=== PATIENT | female | born 1970 | race Caucasian/White ===

== ENCOUNTER → 2020-02-09 14:29 | Outpatient (BNVA) | payer OTHER, SELFPAY | PROVIDERS: PCP Physician Assistant; Visit Provider Internal Medicine | DX: F11.20 Opioid dependence, uncomplicated (principal) | CPT/HCPCS: 99212 ==

== ENCOUNTER → 2020-03-08 14:46 | Outpatient (BNVA) | payer OTHER, SELFPAY | PROVIDERS: Visit Provider Internal Medicine | DX: F11.99 Opioid use, unspecified with unspecified opioid-induced disorder (principal) | CPT/HCPCS: 80305; 99211 ==

== ENCOUNTER 2020-04-09 09:35 | Day surgery (SDC) | payer MEDICARE, MEDICAID, SELFPAY ==
--- NOTE | 2020-04-09 | FL_ITS ---
EXAMINATION: XR LUMBAR PUNCTURE CLINICAL INFORMATION: Peripheral neuropathy. COMPARISON: None TECHNIQUE: Following explaining fluoroscopy-guided lumbar puncture procedure, benefits and risk, a written consent was obtained. Patient was placed prone on fluoroscopy table and low back area was cleaned and draped in the usual sterile manner. 1% lidocaine was injected at puncture site. A 20-gauge 6-inch long needle was inserted from right paramidline location at L3-L4 disc level intrathecally. After observing fluid return, patient was quickly placed in left lateral decubitus view and opening CSF pressure was obtained. CSF was then collected in 4 test tubes. Stylet was reintroduced and needle withdrawn. Complete hemostasis achieved at puncture site. Patient tolerated procedure extremely well. Sterile band-aid applied post procedure at the puncture site. FINDINGS: On the single fluoroscopy image, there is needle positioned posteriorly at the L4-L5 disc level. The vertebral heights, alignment and disc heights are preserved. Opening CSF pressure measured 14 cm of water. Approximately 11 mL of clear CSF fluid collected in 4 test tubes. FLUOROSCOPY TIME: 0.7 minutes DOSE AREA PRODUCT: 13.605 uGy-m2 (microgray-meter squared) FL/FL guided lumbar puncture LP IMPRESSION: Successful ultrasound-guided lumbar puncture performed. Opening CSF pressure 14 cm of water. 11 mL of clear CSF fluid collected and sent to lab.
[2020-04-09 10:01] VITALS: BMI 31.9
[2020-04-09 10:14] LABS: MANUAL DIFF FLAG NO
[2020-04-09 10:16] LABS: Basophils Absolute Auto 0.1 X10*3/uL (0.0-0.2); Basophils Percent Auto 0.5 % (0-2); Eosinophils Absolute Auto 0.4 X10*3/uL (0.0-0.4); Eosinophils Percent Auto 3.8 % (0-4); Hemoglobin 9.9 g/dl (12.0-16.0); Imm Gran Abs Auto 0.15 X10*3/uL (0.00-0.03); Imm Gran Pct Auto 1.4 % (0.0-0.4); Lymphocytes Absolute Auto 3.1 X10*3/uL (1.2-4.9); Lymphocytes Percent Auto 28.8 % (20-40); Mean Corpuscular HGB Conc 29.1 g/dl (31.0-35.0); Mean Corpuscular Hemoglobin 21.5 pg (27.0-33.0); Mean Corpuscular Volume 73.9 fL (80-98); Mean Platelet Volume 8.8 fL (9.4-12.3); Monocytes Percent Auto 9.6 % (2-11); Neutrophils Percent Auto 55.9 % (45-73); Platelet Count 303 X10*3/uL (160-400); Red Cell Distribution Width 18.3 % (11.0-16.0); White Blood Count 10.8 X10*3/uL (4.8-10.8)
[2020-04-09 10:22] LABS: INTERNATIONAL NORM RATIO 1.1 (0.9-1.1); Prothrombin Time 12.9 SEC (10.8-13.0)
[2020-04-09 10:25] LABS: Partial Thromboplastin Time 31.8 SEC (24.1-38.0)
[2020-04-09 12:05] VITALS: BP 154/67; PULSE 65; RESP 20; TEMP 36.3; O2SAT 96
[2020-04-09 12:20] VITALS: BP 142/73; PULSE 64; RESP 20; O2SAT 95
[2020-04-09] MEDS: Acetaminophen 325 MG TABLET 650 MG PO (12:30)
[2020-04-09] MEDS: oxyCODONE HCl Immed Release 5 MG TABLET PO (12:30)
[2020-04-09 12:35] VITALS: BP 145/76; PULSE 62; RESP 18; O2SAT 96
[2020-04-09 12:50] LABS: CSF Appearance Clear, Colorless; CSF Tube # 1; Oligoclonal Serum Yes
[2020-04-09 13:09] LABS: Appearance CSF CLEAR; CSF Monos 0 %; CSF Other Cells % 0 %; CSF Tube # 4; Color CSF COLORLESS; Lymphocytes CSF 100 %; Neutrophils CSF 0 %; Red Blood Cell CSF 2 MM*3; White Blood Cell CSF 2 MM*3
[2020-04-09 13:10] VITALS: BP 108/56; PULSE 65; RESP 18; O2SAT 95
[2020-04-09 13:11] LABS: Glucose CSF 119 mg/dL; Total Protein CSF 33.7 mg/dL (15-45)
[2020-04-09 13:40] VITALS: BP 114/60; PULSE 91; RESP 18; O2SAT 96
[2020-04-14 15:31] LABS: Albumin 3.4 g/dL (3.5-5.2); Albumin, CSF 16.5 mg/dL (8.0-42.0); IgG 1910 mg/dL (600-1640); IgG, CSF 3.6 mg/dL (0.8-7.7)
== END 2020-04-09 23:59 | disposition home or self-care (01) ==
PROVIDERS: Radiology Diagnostic Radiology; PCP Physician Assistant; Visit Provider Psychiatry & Neurology Neurology
PROC: 009U3ZZ Drainage of Spinal Canal, Percutaneous Approach (ICD-10-PCS; CPT 62270; principal; 2020-04-09 11:00)
DX: G62.9 Polyneuropathy, unspecified (principal); I10 Essential (primary) hypertension; E11.40 Type 2 diabetes mellitus with diabetic neuropathy, unspecified; Z79.4 Long term (current) use of insulin; F41.8 Other specified anxiety disorders; F11.20 Opioid dependence, uncomplicated; Z79.899 Other long term (current) drug therapy; Z88.0 Allergy status to penicillin; Z88.2 Allergy status to sulfonamides
CPT/HCPCS: 36415; 62328; 82042; 82945; 83916; 84157; 85025; 85610; 85730; 87015; 87070; 87205; 89051

== ENCOUNTER → 2020-04-12 15:53 | Outpatient (BNVA) | payer OTHER, SELFPAY | PROVIDERS: Visit Provider Internal Medicine | DX: Z13.89 Encounter for screening for other disorder (principal) | CPT/HCPCS: 99211 ==

== ENCOUNTER → 2020-05-13 14:45 | Outpatient (BNVA) | payer OTHER, SELFPAY | PROVIDERS: PCP Family Medicine; Visit Provider Internal Medicine | DX: Z76.89 Persons encountering health services in other specified circumstances (principal) ==

== ENCOUNTER → 2020-06-12 13:30 | Outpatient (BNVA) | payer MEDICARE, MEDICAID, SELFPAY | PROVIDERS: Visit Provider Internal Medicine | DX: F11.20 Opioid dependence, uncomplicated (principal) | CPT/HCPCS: 80305; 99212 ==

== ENCOUNTER → 2020-07-05 14:29 | Outpatient (BNVA) | payer MEDICARE, MEDICAID, SELFPAY | PROVIDERS: Visit Provider Internal Medicine | DX: F11.20 Opioid dependence, uncomplicated (principal) | CPT/HCPCS: 80305; 99212 ==

== ENCOUNTER → 2020-07-17 13:59 | Outpatient (BNVA) | payer MEDICARE, MEDICAID, SELFPAY | PROVIDERS: Visit Provider Internal Medicine | DX: F11.99 Opioid use, unspecified with unspecified opioid-induced disorder (principal); Z79.899 Other long term (current) drug therapy | CPT/HCPCS: 80305; 99211 ==

== ENCOUNTER → 2020-07-24 13:29 | Outpatient (BNVA) | payer MEDICARE, MEDICAID, SELFPAY | PROVIDERS: Visit Provider Internal Medicine | DX: F11.99 Opioid use, unspecified with unspecified opioid-induced disorder (principal); Z79.899 Other long term (current) drug therapy | CPT/HCPCS: 80305; 99212 ==

== ENCOUNTER 2020-08-13 13:36 | Outpatient (REF) | payer MEDICARE, MEDICAID, SELFPAY ==
[2020-08-13 15:16] LABS: Hemoglobin 11.1 g/dl (12.0-16.0); Mean Corpuscular HGB Conc 29.2 g/dl (31.0-35.0); Mean Corpuscular Hemoglobin 21.3 pg (27.0-33.0); Mean Corpuscular Volume 72.8 fL (80-98); Mean Platelet Volume 9.6 fL (9.4-12.3); Platelet Count 363 X10*3/uL (160-400); Red Blood Count 5.22 X10*6/uL (4.20-5.50); Red Cell Distribution Width 17.5 % (11.0-16.0); White Blood Count 9.8 X10*3/uL (4.8-10.8)
[2020-08-13 15:59] LABS: TSH reflex Free T4 0.94 uIU/mL (0.32-4.0)
[2020-08-13 16:03] LABS: Alanine Aminotransferase 25 U/L (0-31); Albumin Level 4.1 g/dL (3.5-5.0); Alkaline Phosphatase 139 U/L (39-117); Anion Gap 13 (12-20); Aspartate Amino Transferase 26 U/L (5-31); Bilirubin Total 0.4 mg/dL (0.0-1.0); Blood Urea Nitrogen 13 mg/dL (9-16); Calcium 9.3 mg/dL (8.4-10.2); Carbon Dioxide 25 mmol/L (22-29); Chloride 107 mmol/L (96-108); Cholesterol 243 mg/dL; Estimated Glomerular Filt Rate > 60; Glucose Fasting 103 mg/dL (60-99); HDL Cholesterol 31 mg/dL; LDL Cholesterol Calculated 167 mg/dl; Potassium 4.1 mmol/L (3.3-5.1); Sodium 141 mmol/L (135-145); Total Protein 8.7 g/dL (6.5-8.0); Triglycerides 229 mg/dL
[2020-08-13 16:52] LABS: Creatinine Urine 49.66 mg/dL; Microalbumin Urine < 5.0 mg/L
== END 2020-08-13 13:37 | disposition home or self-care (01) ==
LOC: HO.LAB 13:36
PROVIDERS: PCP Physician Assistant; Visit Provider Nurse Practitioner Family
DX: E11.65 Type 2 diabetes mellitus with hyperglycemia (principal); I10 Essential (primary) hypertension; K59.04 Chronic idiopathic constipation; K64.9 Unspecified hemorrhoids; Z79.4 Long term (current) use of insulin
CPT/HCPCS: 36415; 80053; 80061; 82043; 84443; 85027; Q3014

== ENCOUNTER → 2020-08-14 13:56 | Outpatient (BNVA) | payer MEDICARE, MEDICAID, SELFPAY | PROVIDERS: Visit Provider Internal Medicine | DX: F11.99 Opioid use, unspecified with unspecified opioid-induced disorder (principal); Z51.81 Encounter for therapeutic drug level monitoring; Z79.899 Other long term (current) drug therapy | CPT/HCPCS: 80305; 99212 ==

== ENCOUNTER → 2020-08-27 13:33 | Outpatient (BNVA) | payer MEDICARE, MEDICAID, SELFPAY | PROVIDERS: Visit Provider Nurse Practitioner Family | DX: Z12.11 Encounter for screening for malignant neoplasm of colon (principal); K59.09 Other constipation | CPT/HCPCS: Q3014 ==

== ENCOUNTER 2020-09-02 09:19 | Day surgery (SDC) | payer MEDICARE, MEDICAID, SELFPAY ==
[2020-09-02 09:33] VITALS: BMI 30.5
--- NOTE | 2020-09-02 09:33 | P.CONAN_ITS ---
[facility] Active Problems Active Problems: All Active Problems (Updated 08/27/20 @ 16:51 by Radha santamaria) DMII (diabetes mellitus, type 2) (Acute) Constipation (Acute) Bright red blood per rectum (Acute) MDD (major depressive disorder) (Acute) RLS (restless legs syndrome) (Acute) Migraines (Acute) Central sleep apnea (Acute) Cellulitis (Acute) Diabetic neuropathy (Acute) Spinal stenosis of lumbar region with radiculopathy (Acute) Opioid use disorder (Acute) Past Medical History Medical History Anxiety and depression Central sleep apnea Diabetic neuropathy Elevated cholesterol GERD (gastroesophageal reflux disease) HTN (hypertension) IDDM (insulin dependent diabetes mellitus) Major depression Migraine Opioid use disorder PTSD (post-traumatic stress disorder) Spinal stenosis Family History Family History Father Diabetes Mother CVD (cardiovascular disease) Maternal Grandmother Medical history unknown Maternal Grandfather Medical history unknown Brother Diabetes Brother CAD (coronary artery disease) Brother Acute CVA (cerebrovascular accident) Sister Acute CVA (cerebrovascular accident) Myocardial infarction Surgical History Surgical History H/O prior ablation treatment H/O tubal ligation History of ear surgery S/P JOANNE-BSO Social History Social History Alcohol intake: former Smoking Status: Never smoker Use of substances other than those prescribed or required for medical reasons: Yes Substance Use Type: Heroin and Opiates Substance Use Type Other:: medical marijuana Advance Directives: No Advance Directives Information Provided: Yes Recently lost weight without trying: No Meds Allergies Allergy/AdvReac Type Severity Reaction Status Date / Time naloxone Allergy Severe migraines Verified 08/27/20 16:43 NSAIDS (Non-Steroidal Allergy Mild ANGIOEDEMA Verified 08/27/20 16:43 Anti-Inflamma [NSAIDS (NON-STEROIDAL ANTI-INFLAMMA] acetaminophen [Vicodin] Allergy Unknown Unknown Verified 08/27/20 16:43 blue cheese Allergy Unknown Unknown Verified 08/27/20 16:43 hydrocodone [Vicodin] Allergy Unknown Unknown Verified 08/27/20 16:43 Penicillins [PCN] Allergy Unknown UNKNOWN Verified 08/27/20 16:43 propoxyphene Allergy Unknown Unknown Verified 08/27/20 16:43 [From Darvocet-N] Sulfa (Sulfonamide Allergy Unknown Unknown Verified 08/27/20 16:43 Antibiotics) sulfamethoxazole Allergy Unknown UNKNOWN Verified 08/27/20 16:43 [From BACTRIM] sumatriptan [From IMITREX] Allergy Unknown UNKNOWN Verified 08/27/20 16:43 tetracycline Allergy Unknown Unknown Verified 08/27/20 16:43 trimethoprim [From BACTRIM] Allergy Unknown UNKNOWN Verified 08/27/20 16:43 COCONUT Allergy Unknown Unknown Uncoded 08/27/20 16:43 Home Medications Medication Instructions Recorded Confirmed Last Taken Type linaclotide 290 mcg capsule 290 mcg PO QAM 02/05/20 08/27/20 Unknown History lisinopril 10 mg tablet 10 mg PO DAILY 02/05/20 08/27/20 Unknown History pseudoephedrine HCl 30 mg capsule 30 mg PO Q4-6H PRN 02/05/20 08/27/20 Unknown History clonazepam 0.5 mg tablet 0.5 mg PO BID 07/11/20 08/27/20 09/02/20 08:00 History simvastatin 40 mg tablet 40 mg PO DAILY 07/11/20 08/27/20 Unknown History Exam Exam Date and Time: September 02, 2020 0933 Airway Mallampati Class: II TM Dist: >3cm Neck ROM: Full Denture: Upper and Lower Loose/Missing/Broken Teeth: Yes (Edentulous) Heart: RRR Lungs: CTA
[2020-09-02 09:49] VITALS: BP 155/75; PULSE 61; RESP 16; TEMP 36.2; O2SAT 97
--- NOTE | 2020-09-02 09:54 | P.OP_ITS ---
Operative Note Operative Note Date of Service: 09/02/20 Narrative: Pre-op diagnosis: Colon cancer screening Post-op diagnosis: other (Procedure aborted due to poor prep.) Procedure: FLEXIBLE SIGMOIDOSCOPY PROCEDURE NOTE Consent: Indications for the procedure and potential complications of bleeding, perforation, reaction to medications and missed diagnosis were discussed with the patient and informed consent was obtained. Instrument: Olympus PCF H 190 L variable stiffness pediatric colonoscope Monitoring: Vital signs and clinical assessment, intermittent blood pressure monitoring, continuous EKG monitoring, Pulse oximetry and Carbon Dioxide monitoring were done throughout the procedure. Procedure: The patient was placed in the left lateral decubitis position and pre-procedure medications were administered. After a digital rectal examination of the ano-rectum, the video colonoscope was inserted into the rectum and advanced to 20 cms to the distal sigmoid colon. It was not possible to advanced further due to poor prep with solid stool blocking the lumen. The colonoscope was removed and procedure was aborted. Findings: Descending Colon: Not evaluated due to poor prep Sigmoid Colon: Not evaluated due to poor prep Rectum: Not evaluated due to poor prep Ano-rectum: Normal digital rectal exam Colon preparation: poor - procedure was aborted Impression and Post Procedure Diagnosis: Flexible sigmoidoscopy Findings: Procedure aborted due to poor prep. Plan: Patient was advised to continue clear liquid diet today and take 2 tablets of Dulcolax and Miralax Prep today. Colonoscopy rescheduled for 09/03/20 at 2 pm. Above findings were reviewed with the patient. Surgeon: Gelacio Whittaker MD Anesthesia: MAC (Dr Jimenez) [employer] P[employer] Machine Operator: Jennifer Payton Estimated blood loss (mL): 0 Pathology: none sent Condition: stable Disposition: PACU
--- NOTE | 2020-09-02 09:54 | MHC.SHP ---
Pre-Procedural Eval Section A The patient is an INPATIENT: No The History & Physical has been completed within 30 days and I have reviewed it.: Yes Section B Chief Complaint: Chronic Idiopathic Constipation Allergies: Allergies Allergy/AdvReac Type Severity Reaction Status Date / Time naloxone Allergy Severe migraines Verified 08/27/20 16:43 NSAIDS (Non-Steroidal Allergy Mild ANGIOEDEMA Verified 08/27/20 16:43 Anti-Inflamma [NSAIDS (NON-STEROIDAL ANTI-INFLAMMA] acetaminophen [Vicodin] Allergy Unknown Unknown Verified 08/27/20 16:43 blue cheese Allergy Unknown Unknown Verified 08/27/20 16:43 hydrocodone [Vicodin] Allergy Unknown Unknown Verified 08/27/20 16:43 Penicillins [PCN] Allergy Unknown UNKNOWN Verified 08/27/20 16:43 propoxyphene Allergy Unknown Unknown Verified 08/27/20 16:43 [From Darvocet-N] Sulfa (Sulfonamide Allergy Unknown Unknown Verified 08/27/20 16:43 Antibiotics) sulfamethoxazole Allergy Unknown UNKNOWN Verified 08/27/20 16:43 [From BACTRIM] sumatriptan [From IMITREX] Allergy Unknown UNKNOWN Verified 08/27/20 16:43 tetracycline Allergy Unknown Unknown Verified 08/27/20 16:43 trimethoprim [From BACTRIM] Allergy Unknown UNKNOWN Verified 08/27/20 16:43 COCONUT Allergy Unknown Unknown Uncoded 08/27/20 16:43 Review of Systems Sugical H&P ROS: Negative: Constitution, Cardiovascular and Respiratory and Yes, Specify: Gastrointestinal (constipation and hematochezia) Exam Surgical H&P Exam: Normal: Heart, Normal: Lungs, Normal: Extremities and Normal: Abdomen Plan Diagnosis/Plan: Unchanged I have reviewed the history and physical and performed a pertinent physical examination on my patient. No changes have occurred unless specified.
--- NOTE | 2020-09-02 10:05 | HO.ANESPROP2 ---
[facility] Active Problems Active Problems: All Active Problems (Updated 08/27/20 @ 16:51 by Radha Gonzales) DMII (diabetes mellitus, type 2) (Acute) Constipation (Acute) Bright red blood per rectum (Acute) MDD (major depressive disorder) (Acute) RLS (restless legs syndrome) (Acute) Migraines (Acute) Central sleep apnea (Acute) Cellulitis (Acute) Diabetic neuropathy (Acute) Spinal stenosis of lumbar region with radiculopathy (Acute) Opioid use disorder (Acute) Past Medical History Medical History Anxiety and depression Central sleep apnea Diabetic neuropathy Elevated cholesterol GERD (gastroesophageal reflux disease) HTN (hypertension) IDDM (insulin dependent diabetes mellitus) Major depression Migraine Opioid use disorder PTSD (post-traumatic stress disorder) Spinal stenosis Family History Family History Father Diabetes Mother CVD (cardiovascular disease) Maternal Grandmother Medical history unknown Maternal Grandfather Medical history unknown Brother Diabetes Brother CAD (coronary artery disease) Brother Acute CVA (cerebrovascular accident) Sister Acute CVA (cerebrovascular accident) Myocardial infarction Surgical History Surgical History H/O prior ablation treatment H/O tubal ligation History of ear surgery S/P JOANNE-BSO Social History Social History Alcohol intake: former Smoking Status: Never smoker Use of substances other than those prescribed or required for medical reasons: Yes Substance Use Type: Heroin and Opiates Substance Use Type Other:: medical marijuana Advance Directives: No Advance Directives Information Provided: Yes Recently lost weight without trying: No Meds Allergies Allergy/AdvReac Type Severity Reaction Status Date / Time naloxone Allergy Severe migraines Verified 08/27/20 16:43 NSAIDS (Non-Steroidal Allergy Mild ANGIOEDEMA Verified 08/27/20 16:43 Anti-Inflamma [NSAIDS (NON-STEROIDAL ANTI-INFLAMMA] acetaminophen [Vicodin] Allergy Unknown Unknown Verified 08/27/20 16:43 blue cheese Allergy Unknown Unknown Verified 08/27/20 16:43 hydrocodone [Vicodin] Allergy Unknown Unknown Verified 08/27/20 16:43 Penicillins [PCN] Allergy Unknown UNKNOWN Verified 08/27/20 16:43 propoxyphene Allergy Unknown Unknown Verified 08/27/20 16:43 [From Darvocet-N] Sulfa (Sulfonamide Allergy Unknown Unknown Verified 08/27/20 16:43 Antibiotics) sulfamethoxazole Allergy Unknown UNKNOWN Verified 08/27/20 16:43 [From BACTRIM] sumatriptan [From IMITREX] Allergy Unknown UNKNOWN Verified 08/27/20 16:43 tetracycline Allergy Unknown Unknown Verified 08/27/20 16:43 trimethoprim [From BACTRIM] Allergy Unknown UNKNOWN Verified 08/27/20 16:43 COCONUT Allergy Unknown Unknown Uncoded 08/27/20 16:43 Active Medications: Current Medications Generic Name Dose Route Start Last Admin Trade Name Freq PRN Reason Stop Dose Admin Lactated Ringer's 1,000 mls @ 50 mls/hr 09/02/20 10:00 Lr IV .Q20H [facility] Home Medications Medication Instructions Recorded Confirmed Last Taken Type linaclotide 290 mcg capsule 290 mcg PO QAM 02/05/20 08/27/20 Unknown History lisinopril 10 mg tablet 10 mg PO DAILY 02/05/20 08/27/20 Unknown History pseudoephedrine HCl 30 mg capsule 30 mg PO Q4-6H PRN 02/05/20 08/27/20 Unknown History clonazepam 0.5 mg tablet 0.5 mg PO BID 07/11/20 08/27/20 09/02/20 08:00 History simvastatin 40 mg tablet 40 mg PO DAILY 07/11/20 08/27/20 Unknown History Exam Exam Date and Time: September 02, 2020 1005 Height,Weight and Vital Signs: Height 5 ft 11 in Weight 99.337 kg Last Vital Signs Temp 97.1 F 09/02/20 09:49 Pulse 61 09/02/20 09:49 Resp 16 09/02/20 09:49 BP 155/75 H 09/02/20 09:49 Pulse Ox 97 09/02/20 09:49 Airway Mallampati Class: II TM Dist: >3cm Denture: Upper and Lower Loose/Missing/Broken Teeth: Yes (Edentulous) Heart: RRR Lungs: CTA Assessment and Plan Assessment Anesthesia Assessment: Anesthesia Plan Discussed and Chart Reviewed Final Anesthetic Review NPO: Yes ASA Class: III Final Preanesthetic Review: Meds/Allgs Chart Reviewed, Consent Obtained/Reviewed and Anes Risks/Benef Reviewed Patient Risk: Intermediate Anesthetic Plan Anesthetic Plan: MAC: Disposition: Standard PACU
[2020-09-02] MEDS: Lactated Ringers 1,000 ML 50 ML IV (10:10)
[2020-09-02 10:14] LABS: Glucose, Whole Blood 243 mg/dL (60-115)
[2020-09-02 10:30] VITALS: BP 116/67; PULSE 67; RESP 18; TEMP 36.2; O2SAT 99
[2020-09-02 10:45] VITALS: BP 122/63; PULSE 65; RESP 18; O2SAT 98
[2020-09-02 11:00] VITALS: BP 123/84; PULSE 78; RESP 18; TEMP 36.4; O2SAT 98
== END 2020-09-02 12:11 | disposition home or self-care (01) ==
PROVIDERS: PCP Physician Assistant; Visit Provider Internal Medicine Gastroenterology
PROC: 0DJD8ZZ Inspection of Lower Intestinal Tract, Via Natural or Artificial Opening Endoscopic (ICD-10-PCS; CPT 45378; principal; 2020-09-02 10:50)
DX: K59.04 Chronic idiopathic constipation (principal); K21.9 Gastro-esophageal reflux disease without esophagitis; I10 Essential (primary) hypertension; E11.40 Type 2 diabetes mellitus with diabetic neuropathy, unspecified; F11.90 Opioid use, unspecified, uncomplicated; F32.9 Major depressive disorder, single episode, unspecified; F43.10 Post-traumatic stress disorder, unspecified; Z79.4 Long term (current) use of insulin; Z79.899 Other long term (current) drug therapy
CPT/HCPCS: 45330; 82947

== ENCOUNTER 2020-09-03 12:53 | Day surgery (SDC) | payer MEDICARE, MEDICAID, SELFPAY ==
[2020-09-03 11:55] VITALS: BMI 30.5
[2020-09-03 13:10] VITALS: BP 165/83; PULSE 63; RESP 18; TEMP 36.2; O2SAT 95
--- NOTE | 2020-09-03 13:27 | P.CONAN_ITS ---
[facility] Active Problems Active Problems: All Active Problems (Updated 08/27/20 @ 16:51 by Radha santamaria) DMII (diabetes mellitus, type 2) (Acute) Constipation (Acute) Bright red blood per rectum (Acute) MDD (major depressive disorder) (Acute) RLS (restless legs syndrome) (Acute) Migraines (Acute) Central sleep apnea (Acute) Cellulitis (Acute) Diabetic neuropathy (Acute) Spinal stenosis of lumbar region with radiculopathy (Acute) Opioid use disorder (Acute) Past Medical History Medical History Anxiety and depression Central sleep apnea Diabetic neuropathy Elevated cholesterol GERD (gastroesophageal reflux disease) HTN (hypertension) IDDM (insulin dependent diabetes mellitus) Major depression Migraine Opioid use disorder PTSD (post-traumatic stress disorder) Spinal stenosis Family History Family History Father Diabetes Mother CVD (cardiovascular disease) Maternal Grandmother Medical history unknown Maternal Grandfather Medical history unknown Brother Diabetes Brother CAD (coronary artery disease) Brother Acute CVA (cerebrovascular accident) Sister Acute CVA (cerebrovascular accident) Myocardial infarction Surgical History Surgical History H/O prior ablation treatment H/O tubal ligation History of ear surgery S/P JOANNE-BSO Social History Social History Alcohol intake: former Smoking Status: Never smoker Use of substances other than those prescribed or required for medical reasons: Yes Substance Use Type: Heroin and Opiates Have you been hit, kicked, punched, or otherwise hurt by someone within the past year? If so, by whom?: No Advance Directives: No Advance Directives Information Provided: No Advance Directives on File: No Meds Allergies Allergy/AdvReac Type Severity Reaction Status Date / Time naloxone Allergy Severe migraines Verified 08/27/20 16:43 NSAIDS (Non-Steroidal Allergy Mild ANGIOEDEMA Verified 08/27/20 16:43 Anti-Inflamma [NSAIDS (NON-STEROIDAL ANTI-INFLAMMA] acetaminophen [Vicodin] Allergy Unknown Unknown Verified 08/27/20 16:43 blue cheese Allergy Unknown Unknown Verified 08/27/20 16:43 hydrocodone [Vicodin] Allergy Unknown Unknown Verified 08/27/20 16:43 Penicillins [PCN] Allergy Unknown UNKNOWN Verified 08/27/20 16:43 propoxyphene Allergy Unknown Unknown Verified 08/27/20 16:43 [From Darvocet-N] Sulfa (Sulfonamide Allergy Unknown Unknown Verified 08/27/20 16:43 Antibiotics) sulfamethoxazole Allergy Unknown UNKNOWN Verified 08/27/20 16:43 [From BACTRIM] sumatriptan [From IMITREX] Allergy Unknown UNKNOWN Verified 08/27/20 16:43 tetracycline Allergy Unknown Unknown Verified 08/27/20 16:43 trimethoprim [From BACTRIM] Allergy Unknown UNKNOWN Verified 08/27/20 16:43 COCONUT Allergy Unknown Unknown Uncoded 08/27/20 16:43 Home Medications Medication Instructions Recorded Confirmed Last Taken Type linaclotide 290 mcg capsule 290 mcg PO QAM 02/05/20 08/27/20 Unknown History lisinopril 10 mg tablet 10 mg PO DAILY 02/05/20 08/27/20 Unknown History pseudoephedrine HCl 30 mg capsule 30 mg PO Q4-6H PRN 02/05/20 08/27/20 Unknown H istory clonazepam 0.5 mg tablet 0.5 mg PO BID 07/11/20 08/27/20 09/02/20 08:00 History simvastatin 40 mg tablet 40 mg PO DAILY 07/11/20 08/27/20 Unknown History Exam Exam Date and Time: September 03, 2020 1327 Height,Weight and Vital Signs: Height 5 ft 11 in Weight 99.337 kg Last Vital Signs Temp 97.1 F 09/03/20 13:10 Pulse 63 09/03/20 13:10 Resp 18 09/03/20 13:10 BP 165/83 H 09/03/20 13:10 Pulse Ox 95 09/03/20 13:10 Airway Mallampati Class: II (Edentulous) TM Dist: >3cm Neck ROM: Full Loose/Missing/Broken Teeth: Yes, Upper and Lower Heart: RRR Lungs: CTA Assessment and Plan Assessment Anesthesia Assessment: Anesthesia Plan Discussed and Chart Reviewed Final Anesthetic Review NPO: Yes ASA Class: III Final Preanesthetic Review: Meds/Allgs Chart Reviewed, Consent Obtained/Reviewed and Anes Risks/Benef Reviewed Patient Risk: Intermediate Procedure Risk: Low Anesthetic Plan Anesthetic Plan: MAC: Disposition: Standard PACU
[2020-09-03 13:30] LABS: Glucose, Whole Blood 121 mg/dL (60-115)
[2020-09-03] MEDS: Lactated Ringers 1,000 ML 50 ML IV (13:45)
--- NOTE | 2020-09-03 13:53 | W.PM.OPN ---
Operative Note Operative Note Date of Service: 09/03/20 Narrative: Pre-op diagnosis: chronic constipation, rectal bleeding. Post-op diagnosis: other (Internal hemorrhoids, fair to poor prep) Procedure: COLONOSCOPY TILL CECUM Consent: Indications for the procedure and potential complications of bleeding, perforation, reaction to medications and missed diagnosis were discussed with the patient and informed consent was obtained. Instrument: Olympus PCF H 190 L variable stiffness pediatric colonoscope Monitoring: Vital signs and clinical assessment, intermittent blood pressure monitoring, continuous EKG monitoring, Pulse oximetry and Carbon Dioxide monitoring were done throughout the procedure. Colon withdrawl time was 40 minutes. Procedure: The patient was placed in the left lateral decubitis position and pre-procedure medications were administered. After a digital rectal examination of the ano-rectum, the video colonoscope was inserted into the rectum and advanced through the colon to the cecum. The colonoscope was slowly withdrawn in a retrograde panoramic fashion and the colon mucosa was carefully examined including a retroflexed view of the rectum. Findings and interventions are described below. Procedure Difficulty: Colon was long and tortuous and there was some loop formation. LLQ pressure was applied to intubate the ascending colon Findings: Terminal Ileum: Not evaluated Cecum: Partially evaluated due to fair to poor prep Ascending Colon: Partially evaluated due to fair to poor prep Transverse Colon: Partially evaluated due to fair to poor prep Descending Colon: Partially evaluated due to fair to poor prep Sigmoid Colon: Partially evaluated due to fair to poor prep Rectum: Partially evaluated due to fair to poor prep Ano-rectum: Moderate internal hemorrhoids Colon preparation: Fair and poor in some areas of the colon due to semi solid stool which could not be suctioned. 50% of the mucosa was visualized in will obstructing lesion was noted Impression and Post Procedure Diagnosis: Colonoscopy Findings: No polyps were detected. Colon prep was fair to poor despite copious irrigation due to semi solid stool which could not be suctioned. 50% - 60% of the mucosa was visualized and no obstructing lesions were seen. Moderate hemorrhoids on retroflexed exam. Plan: Patient has an appointment on 09/16/20 in the [facility] with Nathaly Pinto FNP-BC . Repeat Colonoscopy interval based on path results - in 6 months with 2 day prep. And a low fibre diet and Miralax two to three times daily the week before colonoscopy. Pt has microcytic anemia with elevated RDW, recommend checking iron studies and celiac serologies on follow up. If diagnosis of iron deficiency anemia if confirmed, she should have a same day upper Endoscopy when she returns for repeat colonoscopy. Pt reports she was taking Amitiza in the past for constipation and had good results. If she continues to have constipation despite Linzess, switching back to Amitiza can be considered. Above findings were reviewed with the patient a handout on hemorrhoids was given in the discharge area Surgeon: Gelacio Whittaker MD Anesthesia: MAC (Lisset Muniz, FUNDS DEVELOPMENT DIRECTOR) Director Translational: Juan Hampton Estimated blood loss (mL): 0 Pathology: none sent Condition: stable Disposition: PACU
--- NOTE | 2020-09-03 13:53 | MHC.SHP ---
Pre-Procedural Eval Section A The patient is an INPATIENT: No Changes since office visit: Yes Patient answered all questions; No Cold of Flu in the past 2 weeks, No New Medical Problems and No Changes in Medication The History & Physical has been completed within 30 days and I have reviewed it.: Yes Section B Chief Complaint: chronic constipation Allergies: Allergies Allergy/AdvReac Type Severity Reaction Status Date / Time naloxone Allergy Severe migraines Verified 08/27/20 16:43 NSAIDS (Non-Steroidal Allergy Mild ANGIOEDEMA Verified 08/27/20 16:43 Anti-Inflamma [NSAIDS (NON-STEROIDAL ANTI-INFLAMMA] acetaminophen [Vicodin] Allergy Unknown Unknown Verified 08/27/20 16:43 blue cheese Allergy Unknown Unknown Verified 08/27/20 16:43 hydrocodone [Vicodin] Allergy Unknown Unknown Verified 08/27/20 16:43 Penicillins [PCN] Allergy Unknown UNKNOWN Verified 08/27/20 16:43 propoxyphene Allergy Unknown Unknown Verified 08/27/20 16:43 [From Darvocet-N] Sulfa (Sulfonamide Allergy Unknown Unknown Verified 08/27/20 16:43 Antibiotics) sulfamethoxazole Allergy Unknown UNKNOWN Verified 08/27/20 16:43 [From BACTRIM] sumatriptan [From IMITREX] Allergy Unknown UNKNOWN Verified 08/27/20 16:43 tetracycline Allergy Unknown Unknown Verified 08/27/20 16:43 trimethoprim [From BACTRIM] Allergy Unknown UNKNOWN Verified 08/27/20 16:43 COCONUT Allergy Unknown Unknown Uncoded 08/27/20 16:43 Plan I have reviewed the history and physical and performed a pertinent physical examination on my patient. No changes have occurred unless specified.
[2020-09-03 15:07] VITALS: BP 141/82; PULSE 79; RESP 16; TEMP 36.1; O2SAT 99
[2020-09-03 15:22] VITALS: BP 176/91; PULSE 63; RESP 16; TEMP 36.1; O2SAT 98
== END 2020-09-03 15:59 | disposition home or self-care (01) ==
PROVIDERS: PCP Physician Assistant; Visit Provider Internal Medicine Gastroenterology
PROC: 0DJD8ZZ Inspection of Lower Intestinal Tract, Via Natural or Artificial Opening Endoscopic (ICD-10-PCS; CPT 45378; principal; 2020-09-03 14:00)
DX: K59.09 Other constipation (principal); K62.5 Hemorrhage of anus and rectum; K64.8 Other hemorrhoids; D50.9 Iron deficiency anemia, unspecified; E11.40 Type 2 diabetes mellitus with diabetic neuropathy, unspecified; Z79.4 Long term (current) use of insulin; F11.90 Opioid use, unspecified, uncomplicated; Z88.0 Allergy status to penicillin; Z88.2 Allergy status to sulfonamides; Z79.899 Other long term (current) drug therapy
CPT/HCPCS: 45378; 82947

== ENCOUNTER → 2020-09-06 14:00 | Outpatient (BNVA) | payer MEDICARE, MEDICAID, SELFPAY | PROVIDERS: Visit Provider Internal Medicine | DX: F11.20 Opioid dependence, uncomplicated (principal) | CPT/HCPCS: 80305; 99212 ==

== ENCOUNTER → 2020-09-16 13:59 | Outpatient (BNVA) | payer MEDICARE, MEDICAID, SELFPAY | PROVIDERS: PCP Physician Assistant; Visit Provider Nurse Practitioner Family | DX: Z13.89 Encounter for screening for other disorder (principal) | CPT/HCPCS: Q3014 ==

== ENCOUNTER 2020-09-18 12:44 | Outpatient (REF) | payer MEDICARE, MEDICAID, SELFPAY ==
--- NOTE | ~2020-09-18 | XR_ITS ---
EXAMINATION: XR FOOT, RIGHT CLINICAL INFORMATION: Diabetic ulcer COMPARISON: None TECHNIQUE: AP, lateral, and oblique views of the right foot. FINDINGS: There is mild hallux valgus deformity at the first MTP joint. Bone alignment is otherwise normal. No fracture or dislocation or x-ray evidence of osteomyelitis is seen. There are calcaneal spurs. No abnormal air collection or soft tissue foreign body is seen. XR/XR foot RT 2V IMPRESSION: Mild degenerative changes at the first MTP joint and calcaneal spurs.
== END 2020-09-18 12:45 | disposition home or self-care (01) ==
LOC: HO.XRAY 12:44
PROVIDERS: Absent Provider Physician Assistant; PCP Physician Assistant; Visit Provider Nurse Practitioner Gerontology
DX: E13.621 Other specified diabetes mellitus with foot ulcer (principal); L97.509 Non-pressure chronic ulcer of other part of unspecified foot with unspecified severity; E78.5 Hyperlipidemia, unspecified; I10 Essential (primary) hypertension; Z79.4 Long term (current) use of insulin; Z71.3 Dietary counseling and surveillance
CPT/HCPCS: 73620; 82947; 99212

== ENCOUNTER 2020-09-25 12:46 | Outpatient (RCR) | payer MEDICARE, MEDICAID, SELFPAY | END 2020-11-13 11:39 | disposition home or self-care (01) | LOC: HO.WCC 12:46 | PROVIDERS: Visit Provider Surgery | DX: E10.620 Type 1 diabetes mellitus with diabetic dermatitis (principal); E10.40 Type 1 diabetes mellitus with diabetic neuropathy, unspecified; F12.90 Cannabis use, unspecified, uncomplicated; I10 Essential (primary) hypertension; Z79.4 Long term (current) use of insulin; Z87.891 Personal history of nicotine dependence | CPT/HCPCS: 99212 ==

== ENCOUNTER → 2020-10-09 11:22 | Outpatient (BNVA) | payer MEDICARE, MEDICAID, SELFPAY | PROVIDERS: PCP Physician Assistant; Visit Provider Nurse Practitioner Family | DX: K59.04 Chronic idiopathic constipation (principal); Z51.81 Encounter for therapeutic drug level monitoring; Z79.899 Other long term (current) drug therapy | CPT/HCPCS: 80305; 99211; 99212 ==

== ENCOUNTER 2020-11-04 13:56 | Outpatient (REF) | payer MEDICARE, MEDICAID, SELFPAY ==
[2020-11-07 16:06] LABS: Buprenorphine 24 ng/mL; Norbuprenorphine 110 ng/mL
== END 2020-11-04 13:57 | disposition home or self-care (01) ==
LOC: HO.LAB 13:56
PROVIDERS: Visit Provider Internal Medicine
DX: F11.99 Opioid use, unspecified with unspecified opioid-induced disorder (principal); Z51.81 Encounter for therapeutic drug level monitoring; Z79.899 Other long term (current) drug therapy
CPT/HCPCS: 80305; 80348; 99211

== ENCOUNTER → 2020-11-06 14:18 | Outpatient (BNVA) | payer MEDICARE, MEDICAID, SELFPAY | PROVIDERS: Visit Provider Internal Medicine | DX: F11.90 Opioid use, unspecified, uncomplicated (principal) | CPT/HCPCS: 99212 ==

== ENCOUNTER 2020-11-15 13:17 | Outpatient (REF) | payer MEDICARE, MEDICAID, SELFPAY ==
[2020-11-15 15:16] LABS: Iron 23 mcg/dL (30-160); Percent Iron Saturation 5 % (15-50); Total Iron Binding Capacity 428 mcg/dL (228-428); Unsaturated Iron Binding 405 ug/dL
[2020-11-15 15:37] LABS: Ferritin 16 ng/mL (10-250)
[2020-11-19 22:47] LABS: Transglutaminase Ab IgG 5 U/mL; Transglutaminase IgA 1 U/mL
== END 2020-11-15 13:18 | disposition home or self-care (01) ==
LOC: HO.LAB 13:17
PROVIDERS: PCP Physician Assistant; Visit Provider Nurse Practitioner Family
DX: K62.5 Hemorrhage of anus and rectum (principal); K59.00 Constipation, unspecified; R10.11 Right upper quadrant pain; E11.65 Type 2 diabetes mellitus with hyperglycemia; E11.40 Type 2 diabetes mellitus with diabetic neuropathy, unspecified; E11.42 Type 2 diabetes mellitus with diabetic polyneuropathy; I10 Essential (primary) hypertension; E66.01 Morbid (severe) obesity due to excess calories; F11.99 Opioid use, unspecified with unspecified opioid-induced disorder; Z83.79 Family history of other diseases of the digestive system; Z91.011 Allergy to milk products; Z88.0 Allergy status to penicillin; Z88.2 Allergy status to sulfonamides; Z88.8 Allergy status to other drugs, medicaments and biological substances; Z91.018 Allergy to other foods; Z79.84 Long term (current) use of oral hypoglycemic drugs; Z79.52 Long term (current) use of systemic steroids; Z79.899 Other long term (current) drug therapy
CPT/HCPCS: 36415; 82728; 83516; 83540; 99212; Q3014

== ENCOUNTER → 2020-11-27 13:29 | Outpatient (BNVA) | payer MEDICARE, MEDICAID, SELFPAY | PROVIDERS: Visit Provider Internal Medicine | DX: F11.20 Opioid dependence, uncomplicated (principal); Z51.81 Encounter for therapeutic drug level monitoring | CPT/HCPCS: 80305; 99211 ==

== ENCOUNTER → 2020-12-09 13:19 | Outpatient (BNVA) | payer MEDICARE, MEDICAID, SELFPAY | PROVIDERS: Visit Provider Internal Medicine ==

== ENCOUNTER 2020-12-12 11:23 | Emergency (ER) | payer MEDICARE, MEDICAID, SELFPAY ==
[2020-12-12] VITALS (11 sets, daily range): BP systolic 134–179; BP diastolic 75–96; PULSE 58–82; RESP 12–21; TEMP 36.5–36.8; O2SAT 96–100; BMI 30.9
--- NOTE | ~2020-12-12 | CT_ITS ---
EXAMINATION: CT HEAD/BRAIN WITHOUT CONTRAST CLINICAL INFORMATION: Dizziness. Head injury COMPARISON: None. TECHNIQUE: CT scanning from base of skull to vertex performed without IV contrast administration. This CT examination was performed using dose optimization techniques as appropriate, variously including the following: *Automated exposure control *Adjustment of mA and/or kV according to patient size (this includes techniques or standardized protocols for targeted exams where dose is matched to indication/reason for exam; i.e. extremities or head) *Use of iterative reconstruction technique DLP: 684 mGy-cm. FINDINGS: The ventricles, sulci, and cisterns appear unremarkable. No abnormal extra-axial fluid collection or intracranial hemorrhage is seen. No significant mass effect or midline structure shift is evident. Visualized paranasal sinuses and mastoid air cells unremarkable. CT/CT cervical spine wo con IMPRESSION: No acute intracranial abnormality. EXAMINATION: CT OF THE CERVICAL SPINE CLINICAL INFORMATION: Fall with head strike COMPARISON: None. TECHNIQUE: Thin helical images with sagittal and coronal reformats. This CT examination was performed using dose optimization techniques as appropriate, variously including the following: *Automated exposure control *Adjustment of mA and/or kV according to patient size (this includes techniques or standardized protocols for targeted exams where dose is matched to indication/reason for exam; i.e. extremities or head) *Use of iterative reconstruction technique DOSE: DLP 588 mGy-cm FINDINGS: There is motion artifact present. The vertebral alignment is normal. The atlantoaxial and atlanto-occipital articulations are normal. No fracture. No intrinsic bony abnormality. The vertebral bodies and posterior elements are normal. The disc heights are preserved. The bony canal and neural foramina are well maintained. The surrounding soft tissues are normal. The lung apices are clear. Temporomandibular joints appear unremarkable. Pterygoid plates intact. IMPRESSION: No significant abnormality of the cervical spine identified.
--- NOTE | ~2020-12-12 | XR_ITS ---
EXAMINATION: XR CHEST CLINICAL INFORMATION: Dizziness, fall. COMPARISON: None TECHNIQUE: 2 views of the chest were obtained. FINDINGS: The lungs are fairly well-expanded and clear of acute process. The heart size and pulmonary vascularity is normal. No gross bony abnormality seen. XR/XR chest 2V IMPRESSION: Unremarkable chest exam.
--- NOTE | ~2020-12-12 | CT_ITS ---
EXAMINATION: CT HEAD/BRAIN WITHOUT CONTRAST CLINICAL INFORMATION: Dizziness. Head injury COMPARISON: None. TECHNIQUE: CT scanning from base of skull to vertex performed without IV contrast administration. This CT examination was performed using dose optimization techniques as appropriate, variously including the following: *Automated exposure control *Adjustment of mA and/or kV according to patient size (this includes techniques or standardized protocols for targeted exams where dose is matched to indication/reason for exam; i.e. extremities or head) *Use of iterative reconstruction technique DLP: 684 mGy-cm. FINDINGS: The ventricles, sulci, and cisterns appear unremarkable. No abnormal extra-axial fluid collection or intracranial hemorrhage is seen. No significant mass effect or midline structure shift is evident. Visualized paranasal sinuses and mastoid air cells unremarkable. CT/CT head/brain wo con IMPRESSION: No acute intracranial abnormality. EXAMINATION: CT OF THE CERVICAL SPINE CLINICAL INFORMATION: Fall with head strike COMPARISON: None. TECHNIQUE: Thin helical images with sagittal and coronal reformats. This CT examination was performed using dose optimization techniques as appropriate, variously including the following: *Automated exposure control *Adjustment of mA and/or kV according to patient size (this includes techniques or standardized protocols for targeted exams where dose is matched to indication/reason for exam; i.e. extremities or head) *Use of iterative reconstruction technique DOSE: DLP 588 mGy-cm FINDINGS: There is motion artifact present. The vertebral alignment is normal. The atlantoaxial and atlanto-occipital articulations are normal. No fracture. No intrinsic bony abnormality. The vertebral bodies and posterior elements are normal. The disc heights are preserved. The bony canal and neural foramina are well maintained. The surrounding soft tissues are normal. The lung apices are clear. Temporomandibular joints appear unremarkable. Pterygoid plates intact. IMPRESSION: No significant abnormality of the cervical spine identified.
--- NOTE | 2020-12-12 11:47 | ECG_ITS ---
Test Reason : SYNCOPE Blood Pressure : / mmHG Vent. Rate : 064 BPM Atrial Rate : 064 BPM P-R Int : 196 ms QRS Dur : 080 ms QT Int : 414 ms P-R-T Axes : 055 -24 006 degrees QTc Int : 427 ms Sinus rhythm with occasional Premature ventricular complexes Nonspecific T wave abnormality Abnormal ECG No previous ECGs available Referred By: Chelle Grant Electronically Signed By:Stevie Oquendo
--- NOTE | 2020-12-12 12:10 | ED.GENADULT ---
HPI - General Adult General Chief complaint: Altered Mental Status <Sachi Berg NP - Last Filed: 12/12/20 21:13> Stated complaint: fall with headstrike, no loc, no thinners <Sachi Berg NP - Last Filed: 12/12/20 21:13> Time Seen by Provider: 12/12/20 11:36 <Sachi Berg NP - Last Filed: 12/12/20 21:13> Source: patient and EMS <Sachi Berg NP - Last Filed: 12/12/20 21:13> Mode of arrival: EMS <Sachi Berg NP - Last Filed: 12/12/20 21:13> Limitations: no limitations <Sachi Berg NP - Last Filed: 12/12/20 21:13> History of Present Illness HPI narrative: 50-year-old female with a past medical history of diabetes, hypertension, opiate dependent on Suboxone depression, spinal stenosis, anxiety, depression, diabetic neuropathy, high cholesterol, hypertension here with complaints of headache, dizziness, unsteady gait. Patient tells me that she has had an unsteady gait with occasional dizziness for years. She tells me that she has discussed this with her primary care doctor but is unsure the cause. On Wednesday she was at [place] on a ride and struck her head. She tells me that she was sitting on the water ride which was spinning and when it struck an object the right side of her head struck the head rest on the side. No loss of consciousness. No anticoagulation. Since then she has had intermittent right-sided headache and feels like her dizziness and unsteady gait is worsened. No associated vision changes, nausea, vomiting, chest pain, neck pain. Today her home health aide called 911 for concerned that she was more lethargic from baseline and a witnessed fall while walking striking her head. Patient tells me that she feels dizzy when she moves and feels like her gait is off balance. Again this has been going on for several years and is not a new finding although per patient it has been worsened since the head injury on Wednesday. <Sachi Berg NP - Last Filed: 08/05/21 21:13> Related Data Home medications: Home Medications Medication Instructions Recorded Confirmed pseudoephedrine HCl 30 mg capsule 30 mg PO Q4-6H PRN 02/05/20 12/12/20 acetaminophen 500 mg capsule 1,000 mg PO TID PRN 12/12/20 12/12/20 bupropion HCl 150 mg tablet,12 hr 1 tab PO QAM 12/12/20 12/12/20 sustained-release clonazepam 1 mg tablet 1 mg PO BID PRN 12/12/20 12/12/20 dulaglutide 0.75 mg/0.5 mL 0.75 mg SUBCUT WE 12/12/20 12/12/20 subcutaneous pen injector (Trulicity) quetiapine 50 mg tablet 50 mg PO BEDTIME 12/12/20 12/12/20 quetiapine 50 mg tablet 50 mg PO BEDTIME PRN 12/12/20 12/12/20 risperidone 2 mg tablet 2 mg PO BID 12/12/20 12/12/20 sertraline 100 mg tablet 100 mg PO DAILY 12/12/20 12/12/20 trolamine salicylate 10 % topical 1 appl TOPICAL BID PRN 12/12/20 12/12/20 cream Previous Rx's Medication Instructions Recorded metformin 1,000 mg tablet 1,000 mg PO BID 90 Days #180 tab 07/11/20 topiramate 50 mg tablet 50 mg PO DAILY 90 Days #90 tab 07/11/20 blood-glucose meter (FreeStyle #1 ea 07/19/20 [place] Lite) lancets 28 gauge (FreeStyle #100 ea 07/19/20 Lancets) gabapentin 400 mg capsule 1,200 mg PO TID 30 Days #270 cap 07/25/20 pen needle, diabetic 32 gauge x #100 ea 08/12/2032 (BD Ultra-Fine Luli Pen Needle) lidocaine HCl 4 % topical cream 1 appl TOPICAL BID #76.5 g 08/27/20 (Pain Relief (lidocaine)) omeprazole 20 mg capsule,delayed 20 mg PO DAILY #90 cap 08/28/20 release alpha lipoic acid 600 mg tablet 600 mg PO BID 30 Days #60 tab 09/18/20 insulin degludec 200 unit/mL (3 120 unit SUBCUT BEDTIME 30 Days 09/18/20 mL) subcutaneous pen (Tresiba #18 ml FlexTouch U-200 insulin) insulin aspart U-100 100 unit/mL 20 - 34 unit SUBCUT TID 30 Days 09/19/20 (3 mL) subcutaneous pen (Novolog #30 ml Flexpen U-100 Insulin aspart) docusate sodium 100 mg capsule 200 mg PO BID #30 cap 10/09/20 sennosides 8.6 mg tablet (Natural 8.6 mg PO BID #120 tab MDD 1-2 10/09/20 Senna Laxative) tabs at bedtime lubiprostone 24 mcg capsule 24 mcg PO BID #60 cap 10/18/20 (Amitiza) ropinirole 1 mg tablet 1 mg PO BEDTIME #90 tab 11/06/20 magnesium citrate (Citrate of 150 ml PO DAILY PRN #296 ml 11/15/20 Magnesia) tizanidine 4 mg tablet 4 mg PO Q8H PRN #90 tab 11/23/20 blood sugar diagnostic (FreeStyle #100 ea 12/05/20 Lite Strips) buprenorphine HCl 8 mg sublingual 8 mg SUBLINGUAL TID 14 Days #42 tab 12/09/20 tablet atorvastatin 40 mg tablet 40 mg PO DAILY 30 Days #30 tab 12/11/20 <Sachi Berg, FIELD SEISMOLOGIST - Last Filed: 12/12/20 21:13> Allergies/adverse reactions: Allergies Allergy/AdvReac Type Severity Reaction Status Date / Time naloxone Allergy Severe Unknown Verified 12/09/20 13:32 Penicillins [PCN] Allergy Severe severe Verified 12/09/20 13:32 NSAIDS (Non-Steroidal Allergy Intermediate ANGIOEDEMA Verified 12/09/20 13:32 Anti-Inflamma [NSAIDS (NON-STEROIDAL ANTI-INFLAMMA] acetaminophen [Vicodin] Allergy Unknown Unknown Verified 12/09/20 13:32 blue cheese Allergy Unknown Unknown Verified 12/09/20 13:32 hydrocodone [Vicodin] Allergy Unknown Unknown Verified 12/09/20 13:32 propoxyphene Allergy Unknown Unknown Verified 12/09/20 13:32 [From Darvocet-N] Sulfa (Sulfonamide Allergy Unknown Unknown Verified 12/09/20 13:32 Antibiotics) sulfamethoxazole Allergy Unknown UNKNOWN Verified 12/09/20 13:32 [From BACTRIM] sumatriptan [From IMITREX] Allergy Unknown UNKNOWN Verified 12/09/20 13:32 tetracycline Allergy Unknown Unknown Verified 12/09/20 13:32 trimethoprim [From BACTRIM] Allergy Unknown UNKNOWN Verified 12/09/20 13:32 COCONUT Allergy Unknown Unknown Uncoded 09/18/20 13:11 <Sachi Berg NP - Last Filed: 12/12/20 21:13> Review of Systems Review of Systems: Yes all other systems are reviewed and are negative <Sachi Berg NP - Last Filed: 12/12/20 21:13> Constitutional: Constitutional: Reports no additional constitutional complaints, Denies body ache(s), Denies chills, Denies fever(s), Reports headache(s) and Denies weakness <Sachi Berg NP - Last Filed: 12/12/20 21:13> Eyes: Eyes: Reports no additional eye complaints and Denies change in vision <Scahi Berg NP - Last Filed: 12/12/20 21:13> ENT: Reports system reviewed and no additional complaints, except as documented, Reports dizziness, Reports headache(s), Denies nasal congestion, Denies nasal discharge and Denies neck pain <Sachi Berg NP - Last Filed: 12/12/20 21:13> Cardiovascular: Cardiovascular: Reports no additional cardiovascular complaints, Denies chest pain, Denies leg edema and Denies dyspnea <Sachi Berg NP - Last Filed: 12/12/20 21:13> Respiratory: Respiratory: Reports no additional respiratory complaints, Denies cough and Denies dyspnea <Sachi Berg NP - Last Filed: 12/12/20 21:13> Gastrointestinal: Gastrointestinal: Reports no additional gastrointestinal complaints, Denies abdominal pain, Denies diarrhea, Denies nausea and Denies vomiting <Sachi Berg NP - Last Filed: 12/12/20 21:13> Genitourinary: Genitourinary: Reports no additional female genitourinary complaints and Denies urinary incontinence <Sachi Berg NP - Last Filed: 12/12/20 21:13> Musculoskeletal: Musculoskeletal: Reports no additional musculoskeletal complaints, Denies back pain, Denies arthralgias, Denies joint swelling, Denies neck pain, Denies numbness and Denies tingling <Sachi Berg NP - Last Filed: 12/12/20 21:13> Integumentary/Breasts: Skin/Breast: Reports system reviewed and no additional complaints, except as docu and Denies rash <Sachi Berg NP - Last Filed: 12/12/20 21:13> Neurologic: Reports system reviewed and no additional complaints, except as documented, Denies Abnormal speech present, Reports dizziness, Reports headache(s), Denies numbness, Denies tingling and Denies weakness <Sachi Berg NP - Last Filed: 12/12/20 21:13> Comments: unsteady gait <Sachi Berg NP - Last Filed: 12/12/20 21:13> [facility] Past Medical History Attestation statement: The following information was validated with the patient. <Sachi Berg NP - Last Filed: 12/12/20 21:13> Source: old records reviewed and nursing notes reviewed <Sachi Berg NP - Last Filed: 12/12/20 21:13> Medical History: Medical History Anxiety and depression Central sleep apnea Diabetes type 2, uncontrolled Diabetic neuropathy Elevated cholesterol GERD (gastroesophageal reflux disease) HTN (hypertension) IDDM (insulin dependent diabetes mellitus) Major depression Migraine Obesity due to excess calories Opioid use disorder PTSD (post-traumatic stress disorder) Spinal stenosis Stroke Type 2 diabetes mellitus with diabetic polyneuropathy Wound of right foot <Sachi Berg NP - Last Filed: 12/12/20 21:13> Surgical History: Surgical History H/O prior ablation treatment H/O tubal ligation History of ear surgery History of esophagogastroduodenoscopy (EGD) Hx of colonoscopy S/P JOANNE-BSO <Sachi Berg NP - Last Filed: 12/12/20 21:13> Family History Family History: Family History Father Diabetes Mother CVD (cardiovascular disease) Diabetes Maternal Grandmother Medical history unknown Maternal Grandfather Medical history unknown Brother Diabetes Brother CAD (coronary artery disease) Brother Acute CVA (cerebrovascular accident) Sister Acute CVA (cerebrovascular accident) Myocardial infarction Diabetes <Sachi Berg NP - Last Filed: 12/12/20 21:13> Social History Social History: Social History Household Members: None Alcohol intake: former Patient Tobacco Use Status: Former Tobacco user Substance Use Type: Heroin and Opiates Advance Directives: No Advance Directives Information Provided: Yes <Sachi Berg NP - Last Filed: 12/12/20 21:13> Physical Exam Vital Signs: Vital Signs: Last Vital Signs Temp 98.2 F 12/12/20 19:07 Pulse 59 12/12/20 22:10 Resp 21 H 12/12/20 22:10 BP 179/86 H 12/12/20 22:10 Pulse Ox 98 12/12/20 22:10 Body Mass Index 30.9 <Sachi Berg NP - Last Filed: 12/12/20 21:13> Vital Signs: Last Vital Signs Temp 98.2 F 12/12/20 19:07 Pulse 59 12/12/20 22:10 Resp 21 H 12/12/20 22:10 BP 179/86 H 12/12/20 22:10 Pulse Ox 98 12/12/20 22:10 Body Mass Index 30.9 <REINA Marvin - Last Filed: 12/13/20 09:02> Const: General: cooperative, healthy appearing, comfortable and no acute distress <Sachi Berg NP - Last Filed: 12/12/20 21:13> Orientation/consciousness: patient oriented x3 <Sachi Berg NP - Last Filed: 12/12/20 21:13> Limitations: no limitations <Sachi Berg NP - Last Filed: 12/12/20 21:13> HENMT: Head: Yes normal to inspection, Yes No palpable skull fracture present, Yes atraumatic, No Zarate's sign, No raccoon eyes and Yes scalp tenderness (mild tenderness to right side-no bogginess/crepitus) <Sachi Berg NP - Last Filed: 12/12/20 21:13> Ears: hearing grossly normal bilaterally and TM's normal bilaterally <Sachi Berg NP - Last Filed: 12/12/20 21:13> General nose exam: Normal external nose present <Sachi Berg NP - Last Filed: 12/12/20 21:13> Face and sinus: Yes normal facial exam <Sachi Berg NP - Last Filed: 12/12/20 21:13> Mouth: Normal oral and palatal mucosa present <Sachi Berg NP - Last Filed: 12/12/20 21:13> Throat: Yes posterior oropharynx normal, Yes tonsils normal and Yes uvula midline <Sachi Berg NP - Last Filed: 12/12/20 21:13> Eyes: General: appearance normal, both eyes and all related structures <Sachi Berg NP - Last Filed: 12/12/20 21:13> Pupils: Equal, round and reactive pupils present <Sachi Berg NP - Last Filed: 12/12/20 21:13> EOM: EOMs intact bilaterally <Sahci Berg NP - Last Filed: 12/12/20 21:13> Direct Ophthalmoscopy: normal light reflex <Sachi Berg NP - Last Filed: 12/12/20 21:13> Neck: Other: Mild tenderness to the cervical mid spine with no step-offs deformities. from <Sachi Berg NP - Last Filed: 12/12/20 21:13> Neck: Yes normal visual inspection, Yes full ROM and Yes no lymphadenopathy <Sachi Berg NP - Last Filed: 12/12/20 21:13> Chest: Chest palpation & inspection: normal inspection of the chest <Sachi Berg NP - Last Filed: 12/12/20 21:13> Resp: Effort & Inspection: normal respiratory effort <Sachi Berg NP - Last Filed: 12/12/20 21:13> Auscultation: clear to auscultation bilaterally <Sachi Berg NP - Last Filed: 12/12/20 21:13> Cardio: Rate: regular rate <Sachi Berg NP - Last Filed: 12/12/20 21:13> Rhythm: regular rhythm <Sachi Berg NP - Last Filed: 12/12/20 21:13> Peripheral pulses: Peripheral pulses 2+ throughout <Sachi Berg NP - Last Filed: 12/12/20 21:13> GI: Inspection: Yes normal to inspection <Sachi Berg NP - Last Filed: 12/12/20 21:13> Palpation (GI): Soft to palpation and nontender <Sachi Berg NP - Last Filed: 12/12/20 21:13> Auscultation: normal bowel sounds <Sachi Berg NP - Last Filed: 12/12/20 21:13> : General: Yes no CVA tenderness <Sachi Berg NP - Last Filed: 12/12/20 21:13> Back/Spine/Pelvis: Back: no CVA tenderness <Sachi Berg NP - Last Filed: 12/12/20 21:13> Thoracic/Lumbar Spine: thoracic and lumbar spine normal to inspection <Sachi Berg NP - Last Filed: 12/12/20 21:13> Skin: General skin exam: no rashes or lesions noted <Sachi Berg NP - Last Filed: 12/12/20 21:13> Neuro: Other: Unsteady gait, feels dizzy, +romberg <Sachi Berg NP - Last Filed: 12/12/20 21:13> General: patient oriented x3, no focal motor deficits and normal sensation to monofilament <Sachi Berg NP - Last Filed: 12/12/20 21:13> Cranial nerves: Yes CN's II-XII intact bilaterally, Yes Equal, round and reactive pupils present, Yes Bilaterally intact EOM present, Yes Nystagmus not present, Yes Normal facial strength present and Yes Midline tongue present <Sachi Berg NP - Last Filed: 12/12/20 21:13> Cognition (Neuro): normal cognition <Sachi Berg NP - Last Filed: 12/12/20 21:13> Speech: No Abnormal speech present <Sachi Berg NP - Last Filed: 12/12/20 21:13> Motor exam (neuro): 5/5 motor strength present throughout <Sachi Berg NP - Last Filed: 12/12/20 21:13> Sensory Exam: Normal double simultaneous stimulation for sensation <Sachi Berg NP - Last Filed: 12/12/20 21:13> Coordination: [id number] test normal, [id number] test normal and Romberg test positive <Sachi Berg NP - Last Filed: 12/12/20 21:13> Romberg Test: Positive <Sachi Berg NP - Last Filed: 12/12/20 21:13> Extrem: General: Yes normal to inspection <Sachi Berg NP - Last Filed: 12/12/20 21:13> Course Course Course Narrative: 50-year-old female here with complaints of acute on chronic dizziness and unsteady gait status post head injury 5 days ago. Also complaining of headache and some neck discomfort on exam. Hemodynamically stable. Neuro exam is normal with the exception of an unsteady gait on ambulation trial and a positive Romberg test. Patient tells me she has been like this for years and is not a new thing however her symptoms do appear worse after her head injury reportedly. Also concern from her home health aide that she was more lethargic this morning with a witnessed fall while ambulating. Patient is alert and oriented. She does have quite an extensive medication list but tells me she has been taking these as prescribed. Will check labs, EKG, chest x-ray, CT head/neck, orthostatics. 1630-labs are unremarkable with the exception of an indeterminate troponin. The patient denies any chest pain. Her EKG shows no ischemic changes. Plan for repeat troponin although less likely ACS. Orthostatics are negative. UA is pending. Imaging shows no acute findings. Patient is unsteady on her feet and I think would benefit from short-term rehab. Her unsteadiness is likely multifactorial and per patient has been going on for years and is not no acute finding. Patient is on multiple medications that increase her risk of unsteady gait (4g gabapentin daily, klonopin 1mg BID, tizanadine 4mg prn, reqip 1mg daily). Therefore a physical therapy evaluation and case management consult were placed. At this time physical therapy will not be available tomorrow morning as the patient is aware she will be in the emergency department overnight. 1814-2nd troponin negative. 1899-Placed in physician observation pending disposition. 2099-Sign out to night team pending disposition. <Sachi Berg NP - Last Filed: 12/12/20 21:13> Reevaluation(s) Reevaluation #1: Physician observation continued. She was seen by PT this morning and short term rehab was recommended. She is declining. She has services at home and would like to go home. Her daughter will help care for her. Case management aware. Advised to take all of her medications as prescribed. Expressed concern about falling and safety at home. She continues to want to leave. Will d/c home with home services. <REINA Marvin - Last Filed: 12/13/20 09:02> Medical Decision Making MDM Narrative Medical decision making narrative: Concussion versus ICH, CVA, orthostatic hypotension, metabolic causea, anemia <Sachi Berg NP - Last Filed: 12/12/20 21:13> Medical Records Medical records reviewed: Yes I reviewed the patient's medical records. <Sachi Berg NP - Last Filed: 12/12/20 21:13> Lab Data Lab results reviewed: Yes I reviewed the patient's lab results. <Sachi Berg NP - Last Filed: 12/12/20 21:13> Result diagrams: : 12/12/20 12:08 12/12/20 12:08 <Sachi Berg NP - Last Filed: 12/12/20 21:13> Labs: Lab Results 12/12/20 12/12/20 12/12/20 Range/Units 12:08 12:08 12:08 WBC 9.1 (4.8-10.8) X10*3/uL RBC 5.16 (4.20-5.50) X10*6/uL Hgb 11.1 L (12.0-16.0) g/dl Hct 38.2 (37-47) % MCV 74.0 L (80-98) fL MCH 21.5 L (27.0-33.0) pg MCHC 29.1 L (31.0-35.0) g/dl RDW 17.3 H (11.0-16.0) % Plt Count 346 (160-400) X10*3/uL MPV 9.2 L (9.4-12.3) fL Immature Gran % (Auto) 0.3 (0.0-0.4) % Neut % (Auto) 66.6 (45-73) % Lymph % (Auto) 24.2 (20-40) % [place] % (Auto) 6.8 (2-11) % Eos % (Auto) 1.8 (0-4) % Baso % (Auto) 0.3 (0-2) % Lymph # (Auto) 2.2 (1.2-4.9) X10*3/uL [place] # (Auto) 0.6 (0.1-1.2) X10*3/uL Eos # (Auto) 0.2 (0.0-0.4) X10*3/uL Baso # (Auto) 0.0 (0.0-0.2) X10*3/uL Abs Immat Gran (auto) 0.03 (0.00-0.03) X10*3/uL Absolute Neuts (auto) 6.1 (2.0-8.3) X10*3/uL Absolute Nucleated RBC 0.000 (0.0-0.012) X10*3/uL Nucleated RBC % (auto) 0.0 (0.0-0.2) /100WBC Sodium 140 (135-145) mmol/L Potassium 4.2 (3.3-5.1) mmol/L Chloride 107 (96-108) mmol/L Carbon Dioxide 25 (22-29) mmol/L Anion Gap 12 (12-20) BUN 12 (9-16) mg/dL Creatinine 0.75 (0.5-1.4) mg/dL Estim Creat Clear Calc 114.4 Estimated GFR > 60 POC Glucose (60-115) mg/dL Random Glucose 234 H (60-115) mg/dL Calcium 9.2 (8.4-10.2) mg/dL Magnesium 1.7 (1.6-2.6) mg/dL Total Bilirubin 0.2 (0.0-1.0) mg/dL Direct Bilirubin < 0.2 (0.0-0.5) mg/dL AST 18 (5-31) U/L ALT 14 (0-31) U/L Alkaline Phosphatase 150 H (39-117) U/L Troponin I High Sens 5.5 (<3.5-17.0) ng/L Total Protein 7.6 (6.5-8.0) g/dL Albumin 3.8 (3.5-5.0) g/dL Urine Color Urine Appearance Urine pH (5.0-8.0) Ur Specific [place] (1.005-1.025) Urine Protein (NEG-TRACE) MG/DL Urine Glucose (UA) (NEG) MG/DL Urine Ketones (NEG) MG/DL Urine Blood (NEG) Urine Nitrite (NEG) Ur Leukocyte Esterase (NEG) Urine RBC (0) /HPF Urine WBC (0-4) /HPF Ur Squamous Epith Cells /LPF Urine Bacteria /LPF COVID-19 (RIK) (Negative) COVID-19 Clin Com 12/12/20 12/12/20 12/12/20 Range/Units 12:08 12:18 16:55 WBC (4.8-10.8) X10*3/uL RBC (4.20-5.50) X10*6/uL Hgb (12.0-16.0) g/dl Hct (37-47) % MCV (80-98) fL MCH (27.0-33.0) pg MCHC (31.0-35.0) g/dl RDW (11.0-16.0) % Plt Count (160-400) X10*3/uL MPV (9.4-12.3) fL Immature Gran % (Auto) (0.0-0.4) % Neut % (Auto) (45-73) % Lymph % (Auto) (20-40) % [place] % (Auto) (2-11) % Eos % (Auto) (0-4) % Baso % (Auto) (0-2) % Lymph # (Auto) (1.2-4.9) X10*3/uL [place] # (Auto) (0.1-1.2) X10*3/uL Eos # (Auto) (0.0-0.4) X10*3/uL Baso # (Auto) (0.0-0.2) X10*3/uL Abs Immat Gran (auto) (0.00-0.03) X10*3/uL Absolute Neuts (auto) (2.0-8.3) X10*3/uL Absolute Nucleated RBC (0.0-0.012) X10*3/uL Nucleated RBC % (auto) (0.0-0.2) /100WBC Sodium (135-145) mmol/L Potassium (3.3-5.1) mmol/L Chloride (96-108) mmol/L Carbon Dioxide (22-29) mmol/L Anion Gap (12-20) BUN (9-16) mg/dL Creatinine (0.5-1.4) mg/dL Estim Creat Clear Calc Estimated GFR POC Glucose (60-115) mg/dL Random Glucose (60-115) mg/dL Calcium (8.4-10.2) mg/dL Magnesium (1.6-2.6) mg/dL Total Bilirubin (0.0-1.0) mg/dL Direct Bilirubin (0.0-0.5) mg/dL AST (5-31) U/L ALT (0-31) U/L Alkaline Phosphatase (39-117) U/L Troponin I High Sens 6.3 (<3.5-17.0) ng/L Total Protein (6.5-8.0) g/dL Albumin (3.5-5.0) g/dL Urine Color YELLOW Urine Appearance CLEAR Urine pH 6.0 (5.0-8.0) Ur Specific [place] 1.020 (1.005-1.025) Urine Protein NEG (NEG-TRACE) MG/DL Urine Glucose (UA) >=1000 H (NEG) MG/DL Urine Ketones NEG (NEG) MG/DL Urine Blood NEG (NEG) Urine Nitrite NEG (NEG) Ur Leukocyte Esterase NEG (NEG) Urine RBC 0-2 (0) /HPF Urine WBC 1-4 (0-4) /HPF Ur Squamous Epith Cells 1+ /LPF Urine Bacteria TRACE /LPF COVID-19 (RIK) Negative (Negative) COVID-19 Clin Com See Note 12/12/20 Range/Units 20:39 WBC (4.8-10.8) X10*3/uL RBC (4.20-5.50) X10*6/uL Hgb (12.0-16.0) g/dl Hct (37-47) % MCV (80-98) fL MCH (27.0-33.0) pg MCHC (31.0-35.0) g/dl RDW (11.0-16.0) % Plt Count (160-400) X10*3/uL MPV (9.4-12.3) fL Immature Gran % (Auto) (0.0-0.4) % Neut % (Auto) (45-73) % Lymph % (Auto) (20-40) % [place] % (Auto) (2-11) % Eos % (Auto) (0-4) % Baso % (Auto) (0-2) % Lymph # (Auto) (1.2-4.9) X10*3/uL [place] # (Auto) (0.1-1.2) X10*3/uL Eos # (Auto) (0.0-0.4) X10*3/uL Baso # (Auto) (0.0-0.2) X10*3/uL Abs Immat Gran (auto) (0.00-0.03) X10*3/uL Absolute Neuts (auto) (2.0-8.3) X10*3/uL Absolute Nucleated RBC (0.0-0.012) X10*3/uL Nucleated RBC % (auto) (0.0-0.2) /100WBC Sodium (135-145) mmol/L Potassium (3.3-5.1) mmol/L Chloride (96-108) mmol/L Carbon Dioxide (22-29) mmol/L Anion Gap (12-20) BUN (9-16) mg/dL Creatinine (0.5-1.4) mg/dL Estim Creat Clear Calc Estimated GFR POC Glucose 181 H (60-115) mg/dL Random Glucose (60-115) mg/dL Calcium (8.4-10.2) mg/dL Magnesium (1.6-2.6) mg/dL Total Bilirubin (0.0-1.0) mg/dL Direct Bilirubin (0.0-0.5) mg/dL AST (5-31) U/L ALT (0-31) U/L Alkaline Phosphatase (39-117) U/L Troponin I High Sens (<3.5-17.0) ng/L Total Protein (6.5-8.0) g/dL Albumin (3.5-5.0) g/dL Urine Color Urine Appearance Urine pH (5.0-8.0) Ur Specific [place] (1.005-1.025) Urine Protein (NEG-TRACE) MG/DL Urine Glucose (UA) (NEG) MG/DL Urine Ketones (NEG) MG/DL Urine Blood (NEG) Urine Nitrite (NEG) Ur Leukocyte Esterase (NEG) Urine RBC (0) /HPF Urine WBC (0-4) /HPF Ur Squamous Epith Cells /LPF Urine Bacteria /LPF COVID-19 (RIK) (Negative) COVID-19 Clin Com <Sachi Berg, FIELD SEISMOLOGIST - Last Filed: 12/12/20 21:13> Lab Results 12/12/20 12/12/20 12/12/20 Range/Units 12:08 12:08 12:08 WBC 9.1 (4.8-10.8) X10*3/uL RBC 5.16 (4.20-5.50) X10*6/uL Hgb 11.1 L (12.0-16.0) g/dl Hct 38.2 (37-47) % MCV 74.0 L (80-98) fL MCH 21.5 L (27.0-33.0) pg MCHC 29.1 L (31.0-35.0) g/dl RDW 17.3 H (11.0-16.0) % Plt Count 346 (160-400) X10*3/uL MPV 9.2 L (9.4-12.3) fL Immature Gran % (Auto) 0.3 (0.0-0.4) % Neut % (Auto) 66.6 (45-73) % Lymph % (Auto) 24.2 (20-40) % [place] % (Auto) 6.8 (2-11) % Eos % (Auto) 1.8 (0-4) % Baso % (Auto) 0.3 (0-2) % Lymph # (Auto) 2.2 (1.2-4.9) X10*3/uL [place] # (Auto) 0.6 (0.1-1.2) X10*3/uL Eos # (Auto) 0.2 (0.0-0.4) X10*3/uL Baso # (Auto) 0.0 (0.0-0.2) X10*3/uL Abs Immat Gran (auto) 0.03 (0.00-0.03) X10*3/uL Absolute Neuts (auto) 6.1 (2.0-8.3) X10*3/uL Absolute Nucleated RBC 0.000 (0.0-0.012) X10*3/uL Nucleated RBC % (auto) 0.0 (0.0-0.2) /100WBC Sodium 140 (135-145) mmol/L Potassium 4.2 (3.3-5.1) mmol/L Chloride 107 (96-108) mmol/L Carbon Dioxide 25 (22-29) mmol/L Anion Gap 12 (12-20) BUN 12 (9-16) mg/dL Creatinine 0.75 (0.5-1.4) mg/dL Estim Creat Clear Calc 114.4 Estimated GFR > 60 POC Glucose (60-115) mg/dL Random Glucose 234 H (60-115) mg/dL Calcium 9.2 (8.4-10.2) mg/dL Magnesium 1.7 (1.6-2.6) mg/dL Total Bilirubin 0.2 (0.0-1.0) mg/dL Direct Bilirubin < 0.2 (0.0-0.5) mg/dL AST 18 (5-31) U/L ALT 14 (0-31) U/L Alkaline Phosphatase 150 H (39-117) U/L Troponin I High Sens 5.5 (<3.5-17.0) ng/L Total Protein 7.6 (6.5-8.0) g/dL Albumin 3.8 (3.5-5.0) g/dL Urine Color Urine Appearance Urine pH (5.0-8.0) Ur Specific [place] (1.005-1.025) Urine Protein (NEG-TRACE) MG/DL Urine Glucose (UA) (NEG) MG/DL Urine Ketones (NEG) MG/DL Urine Blood (NEG) Urine Nitrite (NEG) Ur Leukocyte Esterase (NEG) Urine RBC (0) /HPF Urine WBC (0-4) /HPF Ur Squamous Epith Cells /LPF Urine Bacteria /LPF COVID-19 (RIK) (Negative) COVID-19 Clin Com 12/12/20 12/12/20 12/12/20 Range/Units 12:08 12:18 16:55 WBC (4.8-10.8) X10*3/uL RBC (4.20-5.50) X10*6/uL Hgb (12.0-16.0) g/dl Hct (37-47) % MCV (80-98) fL MCH (27.0-33.0) pg MCHC (31.0-35.0) g/dl RDW (11.0-16.0) % Plt Count (160-400) X10*3/uL MPV (9.4-12.3) fL Immature Gran % (Auto) (0.0-0.4) % Neut % (Auto) (45-73) % Lymph % (Auto) (20-40) % [place] % (Auto) (2-11) % Eos % (Auto) (0-4) % Baso % (Auto) (0-2) % Lymph # (Auto) (1.2-4.9) X10*3/uL [place] # (Auto) (0.1-1.2) X10*3/uL Eos # (Auto) (0.0-0.4) X10*3/uL Baso # (Auto) (0.0-0.2) X10*3/uL Abs Immat Gran (auto) (0.00-0.03) X10*3/uL Absolute Neuts (auto) (2.0-8.3) X10*3/uL Absolute Nucleated RBC (0.0-0.012) X10*3/uL Nucleated RBC % (auto) (0.0-0.2) /100WBC Sodium (135-145) mmol/L Potassium (3.3-5.1) mmol/L Chloride (96-108) mmol/L Carbon Dioxide (22-29) mmol/L Anion Gap (12-20) BUN (9-16) mg/dL Creatinine (0.5-1.4) mg/dL Estim Creat Clear Calc Estimated GFR POC Glucose (60-115) mg/dL Random Glucose (60-115) mg/dL Calcium (8.4-10.2) mg/dL Magnesium (1.6-2.6) mg/dL Total Bilirubin (0.0-1.0) mg/dL Direct Bilirubin (0.0-0.5) mg/dL AST (5-31) U/L ALT (0-31) U/L Alkaline Phosphatase (39-117) U/L Troponin I High Sens 6.3 (<3.5-17.0) ng/L Total Protein (6.5-8.0) g/dL Albumin (3.5-5.0) g/dL Urine Color YELLOW Urine Appearance CLEAR Urine pH 6.0 (5.0-8.0) Ur Specific [place] 1.020 (1.005-1.025) Urine Protein NEG (NEG-TRACE) MG/DL Urine Glucose (UA) >=1000 H (NEG) MG/DL Urine Ketones NEG (NEG) MG/DL Urine Blood NEG (NEG) Urine Nitrite NEG (NEG) Ur Leukocyte Esterase NEG (NEG) Urine RBC 0-2 (0) /HPF Urine WBC 1-4 (0-4) /HPF Ur Squamous Epith Cells 1+ /LPF Urine Bacteria TRACE /LPF COVID-19 (RIK) Negative (Negative) COVID-19 Clin Com See Note 12/12/20 Range/Units 20:39 WBC (4.8-10.8) X10*3/uL RBC (4.20-5.50) X10*6/uL Hgb (12.0-16.0) g/dl Hct (37-47) % MCV (80-98) fL MCH (27.0-33.0) pg MCHC (31.0-35.0) g/dl RDW (11.0-16.0) % Plt Count (160-400) X10*3/uL MPV (9.4-12.3) fL Immature Gran % (Auto) (0.0-0.4) % Neut % (Auto) (45-73) % Lymph % (Auto) (20-40) % [place] % (Auto) (2-11) % Eos % (Auto) (0-4) % Baso % (Auto) (0-2) % Lymph # (Auto) (1.2-4.9) X10*3/uL [place] # (Auto) (0.1-1.2) X10*3/uL Eos # (Auto) (0.0-0.4) X10*3/uL Baso # (Auto) (0.0-0.2) X10*3/uL Abs Immat Gran (auto) (0.00-0.03) X10*3/uL Absolute Neuts (auto) (2.0-8.3) X10*3/uL Absolute Nucleated RBC (0.0-0.012) X10*3/uL Nucleated RBC % (auto) (0.0-0.2) /100WBC Sodium (135-145) mmol/L Potassium (3.3-5.1) mmol/L Chloride (96-108) mmol/L Carbon Dioxide (22-29) mmol/L Anion Gap (12-20) BUN (9-16) mg/dL Creatinine (0.5-1.4) mg/dL Estim Creat Clear Calc Estimated GFR POC Glucose 181 H (60-115) mg/dL Random Glucose (60-115) mg/dL Calcium (8.4-10.2) mg/dL Magnesium (1.6-2.6) mg/dL Total Bilirubin (0.0-1.0) mg/dL Direct Bilirubin (0.0-0.5) mg/dL AST (5-31) U/L ALT (0-31) U/L Alkaline Phosphatase (39-117) U/L Troponin I High Sens (<3.5-17.0) ng/L Total Protein (6.5-8.0) g/dL Albumin (3.5-5.0) g/dL Urine Color Urine Appearance Urine pH (5.0-8.0) Ur Specific [place] (1.005-1.025) Urine Protein (NEG-TRACE) MG/DL Urine Glucose (UA) (NEG) MG/DL Urine Ketones (NEG) MG/DL Urine Blood (NEG) Urine Nitrite (NEG) Ur Leukocyte Esterase (NEG) Urine RBC (0) /HPF Urine WBC (0-4) /HPF Ur Squamous Epith Cells /LPF Urine Bacteria /LPF COVID-19 (RIK) (Negative) COVID-19 Clin Com <REINA Marvin - Last Filed: 12/13/20 09:02> Imaging Data Chest x-ray: Attestation: I personally reviewed and interpreted this imaging study as follows: <Sachi Berg NP - Last Filed: 12/12/20 21:13> Radiologist's impression: [place] [id number] XRay Report Signed Patient: Debbie Henson MR#: [id number] : 1970 Acct:[id number] Age/Sex: 50 / F ADM Date: 12/12/20 Loc: .ED Attending Dr: Ordering Physician: SACHI BERG NP Date of Service: 12/12/20 Procedure(s): XR chest 2V Accession Number(s): [id number] cc: SACHI BERG NP~ EXAMINATION: XR CHEST CLINICAL INFORMATION: Dizziness, fall. COMPARISON: None TECHNIQUE: 2 views of the chest were obtained. FINDINGS: The lungs are fairly well-expanded and clear of acute process. The heart size and pulmonary vascularity is normal. No gross bony abnormality seen. XR/XR chest 2V IMPRESSION: Unremarkable chest exam. <Sachi Berg NP - Last Filed: 12/12/20 21:13> Ct head/cervical spine: Attestation: I personally reviewed and interpreted this imaging study as follows: <Sachi Berg NP - Last Filed: 12/12/20 21:13> Radiologist's impression: EXAMINATION: CT HEAD/BRAIN WITHOUT CONTRAST CLINICAL INFORMATION: Dizziness. Head injury COMPARISON: None. TECHNIQUE: CT scanning from base of skull to vertex performed without IV contrast administration.? This CT examination was performed using dose optimization techniques as appropriate, variously including the following: *Automated exposure control *Adjustment of mA and/or kV according to patient size (this includes techniques or standardized protocols for targeted exams where dose is matched to indication/reason for exam; i.e. extremities or head) *Use of iterative reconstruction technique DLP: 684 mGy-cm. FINDINGS: The ventricles, sulci, and cisterns appear unremarkable. No abnormal extra-axial fluid collection or intracranial hemorrhage is seen. No significant mass effect or midline structure shift is evident. Visualized paranasal sinuses and mastoid air cells unremarkable. CT/CT cervical spine wo con IMPRESSION: No acute intracranial abnormality. ? ? EXAMINATION: CT OF THE CERVICAL SPINE ? CLINICAL INFORMATION: Fall with head strike ? COMPARISON: None. ? TECHNIQUE: Thin helical images with sagittal and coronal reformats. This CT examination was performed using dose optimization techniques as appropriate, variously including the following: *Automated exposure control *Adjustment of mA and/or kV according to patient size (this includes techniques or standardized protocols for targeted exams where dose is matched to indication/reason for exam; i.e. extremities or head) *Use of iterative reconstruction technique ? DOSE:? DLP 588 mGy-cm ? FINDINGS: There is motion artifact present. The vertebral alignment is normal. The atlantoaxial and atlanto-occipital articulations are normal. No fracture. No intrinsic bony abnormality. The vertebral bodies and posterior elements are normal. The disc heights are preserved. The bony canal and neural foramina are well maintained.? The surrounding soft tissues are normal. The lung apices are clear. Temporomandibular joints appear unremarkable. Pterygoid plates intact. ? IMPRESSION: No significant abnormality of the cervical spine identified. <Sachi Berg NP - Last Filed: 12/12/20 21:13> ECG Data Attestation: I personally reviewed and interpreted this ECG as follows: <Sachi Berg NP - Last Filed: 12/12/20 21:13> Interpretation: Sinus rhythm with occasional PVCs with a rate of 64, normal NE, normal QRS nonspecific ST changes <Sachi Berg NP - Last Filed: 12/12/20 21:13> Discharge Plan Discharge Clinical Impression: Unsteady gait Head injury Qualifiers: Encounter type: initial encounter Qualified Code(s): S09.90XA - Unspecified injury of head, initial encounter <Sachi Berg NP - Last Filed: 12/12/20 21:13> Patient Disposition: Home, Self-Care <Sachi Berg NP - Last Filed: 12/12/20 21:13> Instructions: Fall Prevention (ED), Head Injury (ED) <Sachi Berg NP - Last Filed: 12/12/20 21:13> Additional Instructions: It is recommended you go to short term rehab however your are declining at this time. Recommend staying with a family member or having a family member stay with you at home. Take all of your medications as prescribed. Follow up with your doctor AMY. If you develop new or worsening symptoms call 911 or come back to the ER for further evaluation. <Sachi Berg NP - Last Filed: 12/12/20 21:13> Prescriptions: No Action (DME) lancets [FreeStyle Lancets] 28 gauge misc See Rx Instructions .ROUTE .MEDSUPPLY Qty: 100 RF: 3 (DME) blood-glucose meter [FreeStyle [place] Lite] Kit See Rx Instructions .ROUTE .MEDSUPPLY Qty: 1 RF: 0 gabapentin 400 mg capsule 1,200 mg PO TID 30 Days Qty: 270 RF: 4 (DME) pen needle, diabetic [BD Ultra-Fine Luli Pen Needle] 32 gauge x 5/32 needle See Rx Instructions .ROUTE .MEDSUPPLY Qty: 100 RF: 3 lidocaine HCl [Pain Relief (lidocaine)] 4 % cream 1 appl topical BID Qty: 76.5 RF: 0 omeprazole 20 mg capsule,delayed release(DR/EC) 20 mg PO DAILY Qty: 90 RF: 1 insulin aspart U-100 [Novolog Flexpen U-100 Insulin] 100 unit/mL (3 mL) insulin pen 20 - 34 unit subcut TID 30 Days Qty: 30 RF: 3 lubiprostone [Amitiza] 24 mcg capsule 24 mcg PO BID Qty: 60 RF: 3 ropinirole 1 mg tablet 1 mg PO BEDTIME Qty: 90 RF: 1 tizanidine 4 mg tablet 4 mg PO Q8H PRN (Reason: for muscle spasm) Qty: 90 RF: 1 (DME) FreeStyle Lite Strips Strip See Rx Instructions .ROUTE .MEDSUPPLY Qty: 100 RF: 3 buprenorphine HCl 8 mg tablet, sublingual 8 mg sublingual TID 14 Days Qty: 42 RF: 0 atorvastatin 40 mg tablet 40 mg PO DAILY 30 Days Qty: 30 RF: 3 bupropion HCl 150 mg tablet sustained-release 12 hr 1 tab PO QAM RF: 0 clonazepam 1 mg tablet 1 mg PO BID PRN (Reason: Anxiety) RF: 0 risperidone 2 mg tablet 2 mg PO BID RF: 0 quetiapine 50 mg tablet 50 mg PO BEDTIME RF: 0 sertraline 100 mg tablet 100 mg PO DAILY RF: 0 quetiapine 50 mg Tablet 50 mg PO BEDTIME PRN (Reason: Insomnia) RF: 0 trolamine salicylate [Aspercreme] 10 % Cream 1 appl TOPICAL BID PRN (Reason: Pain) RF: 0 acetaminophen 500 mg capsule 1,000 mg PO TID PRN (Reason: Pain) RF: 0 Trulicity 0.75 mg/0.5 mL pen injector 0.75 mg subcut WE RF: 0 alpha lipoic acid 600 mg tablet 600 mg PO BID 30 Days Qty: 60 RF: 1 metformin 1,000 mg tablet 1,000 mg PO BID 90 Days Qty: 180 RF: 3 topiramate 50 mg tablet 50 mg PO DAILY 90 Days Qty: 90 RF: 1 pseudoephedrine HCl 30 mg capsule 30 mg PO Q4-6H PRN (Reason: Nasal Congestion) RF: 0 magnesium citrate [Citrate of Magnesia] Solution 150 ml PO DAILY PRN (Reason: constipation) Qty: 296 RF: 5 Tresiba FlexTouch U-200 200 unit/mL (3 mL) insulin pen 120 unit subcut BEDTIME 30 Days Qty: 18 RF: 2 docusate sodium 100 mg capsule 200 mg PO BID Qty: 30 RF: 3 sennosides [Natural Senna Laxative] 8.6 mg tablet 8.6 mg PO BID MDD 1-2 tabs at bedtime Qty: 120 RF: 2 <Sachi Berg FIELD SEISMOLOGIST - Last Filed: 12/12/20 21:13>
[2020-12-12 12:15] LABS: MANUAL DIFF FLAG NO
[2020-12-12 12:18] LABS: Basophils Percent Auto 0.3 % (0-2); Eosinophils Absolute Auto 0.2 X10*3/uL (0.0-0.4); Eosinophils Percent Auto 1.8 % (0-4); Hematocrit 38.2 % (37-47); Hemoglobin 11.1 g/dl (12.0-16.0); Imm Gran Abs Auto 0.03 X10*3/uL (0.00-0.03); Imm Gran Pct Auto 0.3 % (0.0-0.4); Lymphocytes Absolute Auto 2.2 X10*3/uL (1.2-4.9); Lymphocytes Percent Auto 24.2 % (20-40); Mean Corpuscular HGB Conc 29.1 g/dl (31.0-35.0); Mean Corpuscular Hemoglobin 21.5 pg (27.0-33.0); Mean Platelet Volume 9.2 fL (9.4-12.3); Monocytes Absolute Auto 0.6 X10*3/uL (0.1-1.2); Monocytes Percent Auto 6.8 % (2-11); Neutrophils Absolute Auto 6.1 X10*3/uL (2.0-8.3); Neutrophils Percent Auto 66.6 % (45-73); Platelet Count 346 X10*3/uL (160-400); Red Blood Count 5.16 X10*6/uL (4.20-5.50); Red Cell Distribution Width 17.3 % (11.0-16.0); White Blood Count 9.1 X10*3/uL (4.8-10.8)
[2020-12-12 12:27] LABS: Glucose Urine UA >=1000 MG/DL (NEG); Leukocyte Esterase Urine NEG (NEG); Nitrite Urine NEG (NEG); Urine Blood NEG (NEG); Urine Ketones NEG (NEG); Urine Protein NEG (NEG-TRACE)
[2020-12-12 12:31] LABS: Appearance Urine CLEAR; Color Urine YELLOW
[2020-12-12 12:34] LABS: COVID-19 Test Negative (Negative); IDNOW Serial# 9DD0AD1C
[2020-12-12] MEDS: Acetaminophen 325 MG TABLET 650 MG PO (12:35)
[2020-12-12 12:44] LABS: Bacteria Urine TRACE /LPF; RBC Urine 0-2 /HPF (0); Squamous Epithelial Cell Urine 1+ /LPF
[2020-12-12 12:51] LABS: Alanine Aminotransferase 14 U/L (0-31); Albumin Level 3.8 g/dL (3.5-5.0); Alkaline Phosphatase 150 U/L (39-117); Anion Gap 12 (12-20); Aspartate Amino Transferase 18 U/L (5-31); Bilirubin Direct < 0.2 mg/dL (0.0-0.5); Bilirubin Total 0.2 mg/dL (0.0-1.0); Blood Urea Nitrogen 12 mg/dL (9-16); Calcium 9.2 mg/dL (8.4-10.2); Carbon Dioxide 25 mmol/L (22-29); Chloride 107 mmol/L (96-108); Creatinine Clr Calc Pharmacy 114.4; Estimated Glomerular Filt Rate > 60; Glucose Random 234 mg/dL (60-115); Magnesium 1.7 mg/dL (1.6-2.6); Potassium 4.2 mmol/L (3.3-5.1); Sodium 140 mmol/L (135-145); Total Protein 7.6 g/dL (6.5-8.0)
[2020-12-12 12:53] LABS: Troponin-I High Sensitivity 5.5 ng/L (<3.5-17.0)
--- NOTE | 2020-12-12 13:50 | PC.NURSE ---
Patient has removed her peripheral iv herself after returning from ct.
--- NOTE | 2020-12-12 14:05 | PC.NURSE ---
Patient sitting up in bed talking on the phone. Pt notified that pharmacy would be coming to verify her home meds so we could give her gabapentin dose she takes at home.
[2020-12-12] MEDS: Gabapentin 600 MG TABLET 1200 MG PO (14:59)
--- NOTE | 2020-12-12 15:07 | PC.NURSE ---
Pt back from CT via stretcher. Pt remains alert, oriented and in no distress
--- NOTE | 2020-12-12 15:11 | PHA.MEDREC ---
Pharmacy Consult ? Medication Reconciliation Pharmacy has completed the medication reconciliation. There are no remarkable issues for provider's attention. Patient did not have her medications this morning and currently has a lot of neuropathic pain. Aleah Quinn, PharmD
--- NOTE | 2020-12-12 15:45 | PC.NURSE ---
Patient sitting in bed talking on cellphone. Pt getting agitated with whoever she is talking to. Pt states gabapentin did not help her neuropathy pain all over at all.
[2020-12-12] MEDS: Buprenorphine HCL 8 MG TAB.SUBL SUBLINGUAL ×2 (16:31→22:19)
--- NOTE | 2020-12-12 17:15 | PC.NURSE ---
Patient ambulated to the bathroom and back with assistance.
--- NOTE | 2020-12-12 17:33 | PC.NURSE ---
Daughter at bedside and has brought patient a regular sprite, a snickers bar and peanut M&M's. Regulatory Attorney reminded patient that she is diabetic and not suppose to be eating this. Pt states she can have it because she eats it in moderation.
[2020-12-12 17:48] LABS: Troponin-I High Sensitivity 6.3 ng/L (<3.5-17.0)
--- NOTE | 2020-12-12 20:31 | PC.NURSE ---
PA AWARE OF PT REQUESTING C-PAP. RESPIRATORY CONTACTED.
--- NOTE | 2020-12-12 21:15 | MHC.CM.ED ---
Addendum entered by Yeimy Landon 12/12/20 21:25: HCP is not on file. Pt states she has one at home and her daughter/HCP Jaimie Tatum ([phone]) also has a copy. Pt aware that copy is needed for STR, if recommended. Original Note: CM met with patient at request of Kika Sawyer When CM entered the room and introduced myself, pt stated I need a scooter . Pt lives alone, and uses a cane, wheelchair and a walker. Pt has [facility] services Wednesday-Wednesday 9-3PM. Pt does not know what agency provides her service. Pt states she has [facility] services several days a week (unsure how often) because she has a wound on her foot and she does not know what VNA service she uses. Pt has Medicare/Medicaid. Pt admits to dizziness and unsteady gait for years and no one knows why . Pt was recently at [employer] on hit her head on a ride. Pt states she has been to [facility] in the past (hx drug mis-use and now on suboxone) and does not want to return there. Pt aware that she will have a PT evaluation in the morning. No referrals placed at this time pending PT recommendations. CM to follow for d/c needs.
--- NOTE | 2020-12-12 21:29 | PC.NURSE ---
respiratory aware of pt and is coming to talk with pt.
[2020-12-12 21:39] LABS: Glucose, Whole Blood 181 mg/dL (60-115)
--- NOTE | 2020-12-12 22:11 | PC.NURSE ---
PT BEING MEDICATED AT THIS TIME. PT IN NAD. WILL CONTINUE TO MONITOR PT.
[2020-12-12] MEDS: Gabapentin 400 MG CAPSULE 1200 MG PO (22:13)
[2020-12-12] MEDS: Docusate Sodium 100 MG CAPSULE 200 MG PO (22:14)
[2020-12-12] MEDS: QUEtiapine Fumarate 50 MG TABLET PO (22:15)
[2020-12-12] MEDS: Sennosides 8.6 MG TABLET PO (22:15)
[2020-12-12] MEDS: metFORMIN HCl 1,000 MG TABLET 1000 MG PO (22:16)
[2020-12-12] MEDS: Insulin Glargine,Hum.rec.anlog 100 UNIT/ML 10 ML VIAL 84 UNIT SUBCUT (22:16)
[2020-12-12] MEDS: Atorvastatin Calcium 40 MG TABLET PO (22:16)
[2020-12-12] MEDS: Lidocaine 4 % Cream KIT 1 APPL TOPICAL (22:17)
[2020-12-12] MEDS: risperiDONE 2 MG TABLET PO (22:36)
[2020-12-12] MEDS: rOPINIRole HCL 1 MG TABLET PO (22:42)
--- NOTE | 2020-12-13 00:18 | PC.NURSE ---
PT UP AND AMBULATING WITH A WALKER. COMMODE BEING PLACED AT BEDSIDE FOR PT. PT DENIES ANY OTHER COMPLAINTS AT THIS TIME. WILL CONTINUE TO MONITOR PT.
--- NOTE | 2020-12-13 01:30 | PC.NURSE ---
pt up to restroom with walker w/o difficulty. pt told there is commode in room. pt returns to room w/o difficulty. pt denies further complaints and returns back to bed. will continue to monitor pt.
--- NOTE | 2020-12-13 03:33 | PC.NURSE ---
pt sleeping in NAD. Pt awaiting for case mgt in am. will continue to monitor pt.
[2020-12-13] MEDS: Omeprazole 20 MG CAPSULE.DR PO (08:47)
[2020-12-13] MEDS: Gabapentin 400 MG CAPSULE 1200 MG PO (08:47)
[2020-12-13] MEDS: Sennosides 8.6 MG TABLET PO (08:47)
[2020-12-13] MEDS: Docusate Sodium 100 MG CAPSULE 200 MG PO (08:48)
[2020-12-13] MEDS: metFORMIN HCl 1,000 MG TABLET 1000 MG PO (08:48)
[2020-12-13] MEDS: Acetaminophen 325 MG TABLET 975 MG PO (08:48)
[2020-12-13] MEDS: Topiramate 25 MG TABLET 50 MG PO (08:49)
[2020-12-13] MEDS: Buprenorphine HCL 8 MG TAB.SUBL SUBLINGUAL (08:49)
[2020-12-13] MEDS: Sertraline HCL 100 MG TABLET PO (08:49)
[2020-12-13] MEDS: Lidocaine 4 % Cream KIT 1 APPL TOPICAL (08:51)
[2020-12-13 08:58] LABS: Glucose, Whole Blood 145 mg/dL (60-115)
[2020-12-13 09:06] VITALS: BP 179/86; PULSE 61; O2SAT 99
[2020-12-13 09:34] VITALS: BP 144/71; PULSE 78; RESP 19; O2SAT 98
--- NOTE | 2020-12-13 13:00 | MHC.CM.ED ---
Physical therapy eval completed. Short term rehab is recommended. Per Bob RN, patient is declining short term rehab at this time. Patient has arranged transportation home. Patient is active with [facility] for [facility]. They have been asked to include physical therapy as well. Continue to monitor for d/c needs.
== END 2020-12-13 09:35 | disposition home or self-care (01) ==
PROVIDERS: Nurse Practitioner Family; Emergency Provider Emergency Medicine; PCP Physician Assistant
DX: S09.90XA Unspecified injury of head, initial encounter (principal); G44.309 Post-traumatic headache, unspecified, not intractable; X58.XXXA Exposure to other specified factors, initial encounter; Y93.9 Activity, unspecified; Y92.9 Unspecified place or not applicable; Y99.9 Unspecified external cause status; Z20.822 Contact with and (suspected) exposure to COVID-19
CPT/HCPCS: 36415; 70450; 71046; 72125; 80048; 80076; 81001; 82947; 83735; 84484; 85025; 87635; 93005; 94660; 96372; 97162; 99285; J0571

== ENCOUNTER → 2020-12-23 13:19 | Outpatient (BNVA) | payer MEDICARE, MEDICAID, SELFPAY | PROVIDERS: Visit Provider Internal Medicine | DX: Z51.81 Encounter for therapeutic drug level monitoring (principal) | CPT/HCPCS: 99211 ==

== ENCOUNTER 2020-12-31 11:48 | Emergency (ER) | payer MEDICARE, MEDICAID, SELFPAY ==
--- NOTE | ~2020-12-31 | XR_ITS ---
EXAMINATION: XR KNEE, RIGHT CLINICAL INFORMATION: Trauma, pain COMPARISON: None TECHNIQUE: Four views of the right knee. FINDINGS: There is no visible fracture or dislocation or destructive process. Some mild marginal spurring is seen lateral compartment at the femoral condyle. There is no erosive change or chondrocalcinosis. Hoffa's fat pad appears normal. There is spurring at the quadriceps insertion patella and at origin of the patellar tendon. There may be small suprapatellar effusion. XR/XR knee RT 3V IMPRESSION: 1. No fracture or destructive process. 2. Spurring extensor mechanism at origin patellar tendon and insertion quadriceps tendon. Question small suprapatellar effusion.
--- NOTE | ~2020-12-31 | XR_ITS ---
EXAMINATION: XR ANKLE, RIGHT CLINICAL INFORMATION: Trauma, pain COMPARISON: Radiographs right foot 09/18/2020 TECHNIQUE: AP, lateral, and mortise views of the right ankle. FINDINGS: There is no acute fracture or dislocation. The lateral malleolus has corticated ossicle at the distal end. The medial and posterior malleoli are unremarkable. Abdominal no osteochondral lesion and there is no visible ankle capsular effusion. The subtalar joint is unremarkable. There are posterior and plantar calcaneal spurs and mild spurring from the dorsum navicular. XR/XR ankle RT min 3V IMPRESSION: 1. Corticated ossicle at tip lateral malleolus. 2. No acute fracture or dislocation or ankle capsular effusion. 3. Posterior and plantar calcaneal spurs.
--- NOTE | 2020-12-31 11:56 | ECG_ITS ---
Test Reason : FALL Blood Pressure : / mmHG Vent. Rate : 058 BPM Atrial Rate : 058 BPM P-R Int : 182 ms QRS Dur : 078 ms QT Int : 438 ms P-R-T Axes : 025 -30 -10 degrees QTc Int : 429 ms Sinus bradycardia with occasional Premature ventricular complexes Left axis deviation Cannot rule out Anterior infarct , age undetermined Abnormal ECG When compared with ECG of 12-DEC-2020 12:10, No significant change was found Referred By: Сергей Fuentes Electronically Signed By:TRISTAN DOZIER
--- NOTE | 2020-12-31 11:58 | ED_ITS ---
HPI - Fall General Chief Complaint: Fall Stated Complaint: weakness Time Seen by Provider: 12/31/20 11:55 Source: patient History of Present Illness HPI Narrative: This is a 49 years old female with history of opioid abuse disorder she was program she states that she fell she is complaining of right ankle and right knee pain, she states that she is not sure why she fell MD complaint: fall Onset (ago): hour(s) (1) Fall from: standing Fall witnessed: no Place fall occurred: street Loss of consciousness: none Prolonged down time: no Context: history of frequent falls and other (unsure) Location of injury: other (Right ankle right knee) Related Data Home Medications Medication Instructions Recorded Confirmed pseudoephedrine HCl 30 mg capsule 30 mg PO Q4-6H PRN 02/05/20 12/12/20 acetaminophen 500 mg capsule 1,000 mg PO TID PRN 12/12/20 12/12/20 bupropion HCl 150 mg tablet,12 hr 1 tab PO QAM 12/12/20 12/12/20 sustained-release clonazepam 1 mg tablet 1 mg PO BID PRN 12/12/20 12/12/20 dulaglutide 0.75 mg/0.5 mL 0.75 mg SUBCUT WE 12/12/20 12/12/20 subcutaneous pen injector (Trulicity) quetiapine 50 mg tablet 50 mg PO BEDTIME 12/12/20 12/12/20 quetiapine 50 mg tablet 50 mg PO BEDTIME PRN 12/12/20 12/12/20 risperidone 2 mg tablet 2 mg PO BID 12/12/20 12/12/20 sertraline 100 mg tablet 100 mg PO DAILY 12/12/20 12/12/20 trolamine salicylate 10 % topical 1 appl TOPICAL BID PRN 12/12/20 12/12/20 cream Previous Rx's Medication Instructions Recorded metformin 1,000 mg tablet 1,000 mg PO BID 90 Days #180 tab 07/11/20 topiramate 50 mg tablet 50 mg PO DAILY 90 Days #90 tab 07/11/20 blood-glucose meter (FreeStyle #1 ea 07/19/20 [place] Lite) lancets 28 gauge (FreeStyle #100 ea 07/19/20 Lancets) pen needle, diabetic 32 gauge x #100 ea 08/12/20 (BD Ultra-Fine Luli Pen Needle) lidocaine HCl 4 % topical cream 1 appl TOPICAL BID #76.5 g 08/27/20 (Pain Relief (lidocaine)) omeprazole 20 mg capsule,delayed 20 mg PO DAILY #90 cap 08/28/20 release alpha lipoic acid 600 mg tablet 600 mg PO BID 30 Days #60 tab 09/18/20 insulin aspart U-100 100 unit/mL 20 - 34 unit SUBCUT TID 30 Days 09/19/20 (3 mL) subcutaneous pen (Novolog #30 ml Flexpen U-100 Insulin aspart) docusate sodium 100 mg capsule 200 mg PO BID #30 cap 10/09/20 sennosides 8.6 mg tablet (Natural 8.6 mg PO BID #120 tab MDD 1-2 10/09/20 Senna Laxative) tabs at bedtime lubiprostone 24 mcg capsule 24 mcg PO BID #60 cap 10/18/20 (Amitiza) ropinirole 1 mg tablet 1 mg PO BEDTIME #90 tab 11/06/20 magnesium citrate (Citrate of 150 ml PO DAILY PRN #296 ml 11/15/20 Magnesia) blood sugar diagnostic (FreeStyle #100 ea 12/05/20 Lite Strips) atorvastatin 40 mg tablet 40 mg PO DAILY 30 Days #30 tab 12/11/20 tizanidine 4 mg tablet 4 mg PO Q8H PRN #90 tab 12/16/20 gabapentin 400 mg capsule 1,200 mg PO TID 30 Days #270 cap 12/17/20 hospital bed #1 ea 12/17/20 miscellaneous medical supply 1 ea MISCELLANEOUS DAILY 99 Days 12/17/20 #1 ea buprenorphine HCl 8 mg sublingual 8 mg SUBLINGUAL TID 30 Days #90 tab 12/23/20 tablet insulin degludec 200 unit/mL (3 120 unit SUBCUT BEDTIME 30 Days 12/30/20 mL) subcutaneous pen (Tresiba #18 ml FlexTouch U-200 insulin) Allergies Allergy/AdvReac Type Severity Reaction Status Date / Time naloxone Allergy Severe Unknown Verified 12/09/20 13:32 Penicillins [PCN] Allergy Severe severe Verified 12/09/20 13:32 NSAIDS (Non-Steroidal Allergy Intermediate ANGIOEDEMA Verified 12/09/20 13:32 Anti-Inflamma [NSAIDS (NON-STEROIDAL ANTI-INFLAMMA] acetaminophen [Vicodin] Allergy Unknown Unknown Verified 12/09/20 13:32 blue cheese Allergy Unknown Unknown Verified 12/09/20 13:32 hydrocodone [Vicodin] Allergy Unknown Unknown Verified 12/09/20 13:32 propoxyphene Allergy Unknown Unknown Verified 12/09/20 13:32 [From Darvocet-N] Sulfa (Sulfonamide Allergy Unknown Unknown Verified 12/09/20 13:32 Antibiotics) sulfamethoxazole Allergy Unknown UNKNOWN Verified 12/09/20 13:32 [From BACTRIM] sumatriptan [From IMITREX] Allergy Unknown UNKNOWN Verified 12/09/20 13:32 tetracycline Allergy Unknown Unknown Verified 12/09/20 13:32 trimethoprim [From BACTRIM] Allergy Unknown UNKNOWN Verified 12/09/20 13:32 COCONUT Allergy Unknown Unknown Uncoded 09/18/20 13:11 Review of Systems Review of Systems: Yes all other systems are reviewed and are negative Constitutional: Constitutional: Reports no additional constitutional complaints Eyes: Eyes: Reports no additional eye complaints Cardiovascular: Cardiovascular: Reports no additional cardiovascular complaints Respiratory: Respiratory: Reports no additional respiratory complaints Neurologic: Reports system reviewed and no additional complaints, except as documented PMFSH Past Medical History Attestation statement: The following information was validated with the patient. Medical History Anxiety and depression Central sleep apnea Diabetes type 2, uncontrolled Diabetic neuropathy Elevated cholesterol GERD (gastroesophageal reflux disease) HTN (hypertension) IDDM (insulin dependent diabetes mellitus) Major depression Migraine Obesity due to excess calories Opioid use disorder PTSD (post-traumatic stress disorder) Spinal stenosis Stroke Type 2 diabetes mellitus with diabetic polyneuropathy Wound of right foot Surgical History H/O prior ablation treatment H/O tubal ligation History of ear surgery History of esophagogastroduodenoscopy (EGD) Hx of colonoscopy S/P JOANNE-BSO Family History Family History Father Diabetes Mother CVD (cardiovascular disease) Diabetes Maternal Grandmother Medical history unknown Maternal Grandfather Medical history unknown Brother Diabetes Brother CAD (coronary artery disease) Brother Acute CVA (cerebrovascular accident) Sister Acute CVA (cerebrovascular accident) Myocardial infarction Diabetes Social History Social History Household Members: None Alcohol intake: never Patient Tobacco Use Status: Former Tobacco user Use of substances other than those prescribed or required for medical reasons: No Substance Use Type: Heroin and Opiates Advance Directives: Yes Advance Directives Information Provided: Yes Advance Directives on File: No Physical Exam Vital Signs: Vital Signs: Last Vital Signs Temp 98.5 F 12/31/20 12:05 Pulse 61 12/31/20 12:05 Resp 20 12/31/20 12:05 BP 158/87 H 12/31/20 12:05 Pulse Ox 96 12/31/20 12:05 Body Mass Index 29.2 Const: Other: Patient is awake alert oriented x3 no distress healthy-appearing General: cooperative Orientation/consciousness: oriented to person, oriented to place, oriented to time and patient oriented x3 HENMT: Head: Yes normal to inspection, Yes No palpable skull fracture present, Yes normocephalic and Yes atraumatic Ears: hearing grossly normal bilaterally General nose exam: Normal external nose present Face and sinus: Yes normal facial exam Mouth: Normal oral and palatal mucosa present Eyes: General: appearance normal, both eyes and all related structures Conjunctivae: conjunctivae normal Sclerae: sclerae normal EOM: EOMs intact bilaterally Neck: Neck: Yes normal visual inspection, Yes full ROM and Yes no lymphadenopathy Thyroid: Thyroid normal Carotids: normal carotid upstroke Chest: Chest palpation & inspection: normal inspection of the chest Resp: Effort & Inspection: normal respiratory effort and able to speak in complete sentences Auscultation: clear to auscultation bilaterally Cardio: Jugular venous distension: no JVD Palpation: normal PMI Rate: regular rate Rhythm: regular rhythm Heart sounds: S1 normal heart sound present and S2 normal heart sound present GI: Inspection: Yes normal to inspection Palpation (GI): Soft to palpation, not firm, nontender and no guarding Skin: General skin exam: no rashes or lesions noted and elasticity normal Lesions: no lesions Rashes: no rashes Neuro: General: oriented to person, oriented to place, oriented to time, patient oriented x3 and Normal light touch and pain sensation Cranial nerves: Yes CN's II-XII intact bilaterally Cognition (Neuro): normal cognition Course Reevaluation(s) Reevaluation #1: At this time she is feeling better, x-ray of the ankle and knee are negative ;blood work unremarkable ;I think we can discharge the patient home MDM - Fall Lab Data Result diagrams: 12/31/20 12:11 12/31/20 12:11 Labs: Lab Results 12/31/20 12/31/20 12/31/20 Range/Units 12:11 12:11 12:11 WBC 10.5 (4.8-10.8) X10*3/uL RBC 5.00 (4.20-5.50) X10*6/uL Hgb 11.1 L (12.0-16.0) g/dl Hct 37.8 (37-47) % MCV 75.6 L (80-98) fL MCH 22.2 L (27.0-33.0) pg MCHC 29.4 L (31.0-35.0) g/dl RDW 17.3 H (11.0-16.0) % Plt Count 309 (160-400) X10*3/uL MPV 9.4 (9.4-12.3) fL Immature Gran % (Auto) 0.5 H (0.0-0.4) % Neut % (Auto) 70.0 (45-73) % Lymph % (Auto) 20.4 (20-40) % [place] % (Auto) 7.5 (2-11) % Eos % (Auto) 1.4 (0-4) % Baso % (Auto) 0.2 (0-2) % Lymph # (Auto) 2.2 (1.2-4.9) X10*3/uL [place] # (Auto) 0.8 (0.1-1.2) X10*3/uL Eos # (Auto) 0.2 (0.0-0.4) X10*3/uL Baso # (Auto) 0.0 (0.0-0.2) X10*3/uL Abs Immat Gran (auto) 0.05 H (0.00-0.03) X10*3/uL Absolute Neuts (auto) 7.4 (2.0-8.3) X10*3/uL Absolute Nucleated RBC 0.000 (0.0-0.012) X10*3/uL Nucleated RBC % (auto) 0.0 (0.0-0.2) /100WBC Sodium 139 (135-145) mmol/L Potassium 4.4 (3.3-5.1) mmol/L Chloride 102 (96-108) mmol/L Carbon Dioxide 25 (22-29) mmol/L Anion Gap 16 (12-20) BUN 9 (9-16) mg/dL Creatinine 0.77 (0.5-1.4) mg/dL Estim Creat Clear Calc 108.7 Estimated GFR > 60 Random Glucose 206 H (60-115) mg/dL Calcium 9.1 (8.4-10.2) mg/dL Total Bilirubin 0.4 (0.0-1.0) mg/dL AST 26 D (5-31) U/L ALT 22 (0-31) U/L Alkaline Phosphatase 144 H (39-117) U/L Troponin I High Sens 5.6 (<3.5-17.0) ng/L Total Protein 7.5 (6.5-8.0) g/dL Albumin 3.9 (3.5-5.0) g/dL Imaging Data ankle: Radiologist's impression: EXAMINATION: XR ANKLE, RIGHT CLINICAL INFORMATION: Trauma, pain? COMPARISON: Radiographs right foot 09/18/2020? TECHNIQUE: AP, lateral, and mortise views of the right ankle. FINDINGS: There is no acute fracture or dislocation. The lateral malleolus has corticated ossicle at the distal end. The medial and posterior malleoli are unremarkable. Abdominal no osteochondral lesion and there is no visible ankle capsular effusion. The subtalar joint is unremarkable. There are posterior and plantar calcaneal spurs and mild spurring from the dorsum navicular.? XR/XR ankle RT min 3V IMPRESSION: ? 1. Corticated ossicle at tip lateral malleolus. 2. No acute fracture or dislocation or ankle capsular effusion. 3. Posterior and plantar calcaneal spurs. Dictated By: Cristiano Andrea MD Signed By: <Electronically signed by Cristiano Andrea MD in [place]> 12/31/20 1222 DD/ 1157 TD/TT:? Verify Rep: SILVA ECG Data ECG interpretation date: 12/31/20 Pacemaker model: Sinus rhythm a rate of 58 no ischemic changes 1 PVCs Discharge Plan Discharge Clinical Impression: Fall, Ankle sprain Patient Disposition: Home, Self-Care Instructions: Ankle Sprain (ED) Additional Instructions: You have been evaluated for the fall blood work came back normal the x-ray of the ankle and the knee shows no fracture, please call your primary care physician today arrange a follow-up appointment return if you worse Prescriptions: No Action (DME) lancets [FreeStyle Lancets] 28 gauge misc See Rx Instructions .ROUTE .MEDSUPPLY Qty: 100 RF: 3 (DME) blood-glucose meter [FreeStyle [place] Lite] Kit See Rx Instructions .ROUTE .MEDSUPPLY Qty: 1 RF: 0 (DME) pen needle, diabetic [BD Ultra-Fine Luli Pen Needle] 32 gauge x 5/32 needle See Rx Instructions .ROUTE .MEDSUPPLY Qty: 100 RF: 3 lidocaine HCl [Pain Relief (lidocaine)] 4 % cream 1 appl topical BID Qty: 76.5 RF: 0 omeprazole 20 mg capsule,delayed release(DR/EC) 20 mg PO DAILY Qty: 90 RF: 1 insulin aspart U-100 [Novolog Flexpen U-100 Insulin] 100 unit/mL (3 mL) insulin pen 20 - 34 unit subcut TID 30 Days Qty: 30 RF: 3 lubiprostone [Amitiza] 24 mcg capsule 24 mcg PO BID Qty: 60 RF: 3 ropinirole 1 mg tablet 1 mg PO BEDTIME Qty: 90 RF: 1 (DME) FreeStyle Lite Strips Strip See Rx Instructions .ROUTE .MEDSUPPLY Qty: 100 RF: 3 atorvastatin 40 mg tablet 40 mg PO DAILY 30 Days Qty: 30 RF: 3 tizanidine 4 mg tablet 4 mg PO Q8H PRN (Reason: for muscle spasm) Qty: 90 RF: 1 (DME) hospital bed Kit See Rx Instructions .Route Qty: 1 RF: 0 miscellaneous medical supply Misc 1 ea miscellaneous DAILY 99 Days Qty: 1 RF: 0 gabapentin 400 mg capsule 1,200 mg PO TID 30 Days Qty: 270 RF: 4 buprenorphine HCl 8 mg tablet, sublingual 8 mg sublingual TID 30 Days Qty: 90 RF: 0 Tresiba FlexTouch U-200 200 unit/mL (3 mL) insulin pen 120 unit subcut BEDTIME 30 Days Qty: 18 RF: 2 bupropion HCl 150 mg tablet sustained-release 12 hr 1 tab PO QAM RF: 0 clonazepam 1 mg tablet 1 mg PO BID PRN (Reason: Anxiety) RF: 0 risperidone 2 mg tablet 2 mg PO BID RF: 0 quetiapine 50 mg tablet 50 mg PO BEDTIME RF: 0 sertraline 100 mg tablet 100 mg PO DAILY RF: 0 quetiapine 50 mg Tablet 50 mg PO BEDTIME PRN (Reason: Insomnia) RF: 0 trolamine salicylate [Aspercreme] 10 % Cream 1 appl TOPICAL BID PRN (Reason: Pain) RF: 0 acetaminophen 500 mg capsule 1,000 mg PO TID PRN (Reason: Pain) RF: 0 Trulicity 0.75 mg/0.5 mL pen injector 0.75 mg subcut WE RF: 0 alpha lipoic acid 600 mg tablet 600 mg PO BID 30 Days Qty: 60 RF: 1 metformin 1,000 mg tablet 1,000 mg PO BID 90 Days Qty: 180 RF: 3 topiramate 50 mg tablet 50 mg PO DAILY 90 Days Qty: 90 RF: 1 pseudoephedrine HCl 30 mg capsule 30 mg PO Q4-6H PRN (Reason: Nasal Congestion) RF: 0 magnesium citrate [Citrate of Magnesia] Solution 150 ml PO DAILY PRN (Reason: constipation) Qty: 296 RF: 5 docusate sodium 100 mg capsule 200 mg PO BID Qty: 30 RF: 3 sennosides [Natural Senna Laxative] 8.6 mg tablet 8.6 mg PO BID MDD 1-2 tabs at bedtime Qty: 120 RF: 2 Referrals: Physician,Unknown [Primary Care Provider] - 2 days Interventions: ED Discharge Assessment Last Done: 12/31/20 13:56 Discharge Date/Time: 12/31/20 13:56
[2020-12-31 12:05] VITALS: BP 152/86; BP 158/87; PULSE 61; PULSE 72; RESP 20; TEMP 36.9; O2SAT 96; BMI 29.2
[2020-12-31 12:27] LABS: MANUAL DIFF FLAG NO
[2020-12-31 12:28] LABS: Basophils Percent Auto 0.2 % (0-2); Eosinophils Absolute Auto 0.2 X10*3/uL (0.0-0.4); Eosinophils Percent Auto 1.4 % (0-4); Hematocrit 37.8 % (37-47); Hemoglobin 11.1 g/dl (12.0-16.0); Imm Gran Abs Auto 0.05 X10*3/uL (0.00-0.03); Imm Gran Pct Auto 0.5 % (0.0-0.4); Lymphocytes Absolute Auto 2.2 X10*3/uL (1.2-4.9); Lymphocytes Percent Auto 20.4 % (20-40); Mean Corpuscular HGB Conc 29.4 g/dl (31.0-35.0); Mean Corpuscular Hemoglobin 22.2 pg (27.0-33.0); Mean Corpuscular Volume 75.6 fL (80-98); Mean Platelet Volume 9.4 fL (9.4-12.3); Monocytes Absolute Auto 0.8 X10*3/uL (0.1-1.2); Monocytes Percent Auto 7.5 % (2-11); Neutrophils Absolute Auto 7.4 X10*3/uL (2.0-8.3); Platelet Count 309 X10*3/uL (160-400); Red Cell Distribution Width 17.3 % (11.0-16.0); White Blood Count 10.5 X10*3/uL (4.8-10.8)
[2020-12-31 13:07] LABS: Alanine Aminotransferase 22 U/L (0-31); Albumin Level 3.9 g/dL (3.5-5.0); Alkaline Phosphatase 144 U/L (39-117); Anion Gap 16 (12-20); Aspartate Amino Transferase 26 U/L (5-31); Bilirubin Total 0.4 mg/dL (0.0-1.0); Blood Urea Nitrogen 9 mg/dL (9-16); Calcium 9.1 mg/dL (8.4-10.2); Carbon Dioxide 25 mmol/L (22-29); Chloride 102 mmol/L (96-108); Creatinine Clr Calc Pharmacy 108.7; Estimated Glomerular Filt Rate > 60; Glucose Random 206 mg/dL (60-115); Potassium 4.4 mmol/L (3.3-5.1); Sodium 139 mmol/L (135-145); Total Protein 7.5 g/dL (6.5-8.0)
[2020-12-31 13:11] LABS: Troponin-I High Sensitivity 5.6 ng/L (<3.5-17.0)
[2020-12-31] MEDS: Buprenorphine HCL 8 MG TAB.SUBL SUBLINGUAL (13:20)
== END 2020-12-31 13:56 | disposition home or self-care (01) ==
PROVIDERS: Emergency Provider Emergency Medicine
DX: S93.401A Sprain of unspecified ligament of right ankle, initial encounter (principal); F11.10 Opioid abuse, uncomplicated; W18.39XA Other fall on same level, initial encounter; Y93.01 Activity, walking, marching and hiking; Y92.414 Local residential or business street as the place of occurrence of the external cause; Y99.9 Unspecified external cause status
CPT/HCPCS: 36415; 73562; 73610; 80053; 84484; 85025; 93005; 99283; 99284; J0571